=== PATIENT | female | born 1955 | race Two or more races ===

== ENCOUNTER 2016-11-07 00:54 | Inpatient (IN) | payer MEDICAID ==
[2016-11-07] VITALS (7 sets, daily range): BP systolic 125–142; BP diastolic 68–75
[~2016-11-07] VITALS: Ht 132.1 cm; Wt 76.7 kg
[~2016-11-07 00:54] MED LIST: ASPIRIN-LOW81 MG ORAL; BENAZEPRIL HCL10 MG ORAL; CEPHALEXIN500 MG ORAL; GLIPIZIDE ER5 MG PO; IBUPROFEN600 MG ORAL; IBUPROFEN600 MG PO; LEVAQUIN500 MG ORAL; MAALOX MAXIMUM355 M1 PO; METFORMIN HCL500 M1 ORAL; METRONIDAZOLE500 MG ORAL; NORCO 5-325 TA1 EACH ORAL; OMEPRAZOLE20 M3 ORAL; RANITIDINE HCL150 MG ORAL
[2016-11-07] MEDS ORDERED: Morphine Sulfate 4mg/ml Inj IVP ONE ×2 (01:30→03:30)
[2016-11-07 01:46] LABS: BASOPHILS % (AUTO) 0.8 % (0.0-2.0); EOSINOPHILS % (AUTO) 0.6 % (0.0-3.0); LYMPHOCYTES % (AUTO) 17.3 % (20.0-45.0); MEAN CORPUSCULAR HEMOGLOBIN 29.9 PG (27.0-31.0); MEAN CORPUSCULAR HGB CONC 33.4 G/DL (32.0-36.0); MEAN CORPUSCULAR VOLUME 89 FL (80-99); MEAN PLATELET VOLUME 6.9 FL (6.5-10.1); MONOCYTES % (AUTO) 4.6 % (1.0-10.0); NEUTROPHILS % (AUTO) 76.7 % (45.0-75.0); PLATELET COUNT 430 K/UL (150-450); RED BLOOD COUNT 4.54 M/UL (4.20-5.40); RED CELL DISTRIBUTION WIDTH 12.2 % (11.6-14.8); WHITE BLOOD COUNT 12.4 K/UL (4.8-10.8)
[2016-11-07 02:00] LABS: ALANINE AMINOTRANSFERASE 11 U/L (3-33); ALBUMIN/GLOBULIN RATIO 0.8 (1.0-2.7); ANION GAP 16 (5-15); ASPARTATE AMINO TRANSFERASE 15 U/L (5-40); CALCIUM 9.3 mg/dL (8.6-10.2); CARBON DIOXIDE 25 mEQ/L (20-30); CHLORIDE 90 mEQ/L (98-107); CREATININE 0.8 mg/dL (0.5-0.9); GLOMERULAR FILTRATION RATE > 60 mL/min (>60); HEMOLYSIS 53; LIPASE 25 U/L (< 60); POTASSIUM 4.2 mEQ/L (3.4-4.9); SODIUM 131 mEQ/L (135-145); TOTAL PROTEIN 7.9 g/dL (6.6-8.7)
[2016-11-07 02:02] LABS: TROPONIN I < 0.30 ng/mL (<=0.30)
--- NOTE | 2016-11-07 05:59 | Emergency Room Report ---
History of Present Illness General Chief Complaint: Abdominal Pain Source: Patient Present Illness HPI 61-year-old female presents to ED complaining of abdominal pain. States symptoms started tonight while sleeping. Pain is right upper quadrant, sharp, nonradiating, 10 out of 10. No aggravating or relieving factors. Denies chest pain or shortness of breath. Denies fevers chills. Denies nausea or vomiting. Denies any other associated symptoms Allergies: Coded Allergies: No Known Allergies (Unverified , 02/25/15) Patient History Past Medical History: DM, HTN Past Surgical History: none Pertinent Family History: none Social History: Denies: alcohol use, drug use, smoking Last Menstrual Period: NA Now: No : 7 Immunizations: UTD Reviewed Nursing Documentation: PMH: Agreed, PSxH: Agreed Nursing Documentation-PMH Hx Cardiac Problems: No Hx Hypertension: Yes Hx Pacemaker: No Hx Asthma: No Hx COPD: No Hx Diabetes: Yes Hx Cancer: No Hx Gastrointestinal Problems: No Hx Dialysis: No Hx Neurological Problems: No Hx Cerebrovascular Accident: No Hx Seizures: No Review of Systems All Other Systems: negative except mentioned in HPI Physical Exam Vital Signs Date Time Temp Pulse Resp B/P Pulse Ox O2 Delivery O2 Flow Rate FiO2 11/07/16 01:01 97.7 91 18 174/96 95 Room Air Sp02 EP Interpretation: reviewed, normal General Appearance: no apparent distress, alert, GCS 15, non-toxic, obese Head: normocephalic Eyes: bilateral eye PERRL, bilateral eye normal inspection ENT: normal ENT inspection Neck: normal inspection Respiratory: chest non-tender, lungs clear, normal breath sounds, speaking full sentences Cardiovascular #1: regular rate, rhythm, no edema Gastrointestinal: normal bowel sounds, soft, non-distended, no guarding, no rebound, tenderness - RUQ Rectal: deferred Genitourinary: no CVA tenderness Musculoskeletal: normal inspection Neurologic: alert, oriented x3, responsive, motor strength/tone normal, sensory intact, speech normal Psychiatric: normal inspection Skin: normal inspection Lymphatic: normal inspection Medical Decision Making Diagnostic Impression: Primary Impression: Choledocholithiasis Additional Impression: Recurrent biliary colic ER Course Hospital Course 61-year-old F presents to ED with RUQ pain Differential diagnoses include: Appendicitis, cholecystitis, small bowel obstruction Clinical course Patient placed on stretcher. hall monitor. After initial history and physical I ordered labs, IV fluids, UA, pain medication and CT Labs - leukocytosis noted, Hb/Hct stable. electrolytes ok. LFTs ok. CT - choledocolithasis. no cholecystitis After multiple rounds of pain medication patient continues to have pain. Case discussed with Dr. Barillas and he agreed to accept the patient to his service for further care and support I feel this is a highly complex case requiring extensive working including EKG/ Rhythm strip, Xray/CT/US, Blood/urine lab work, repeat exams while in ED, and administration of strong opiates/narcotics for pain control, admission to hospital or close patient follow up. Diagnosis - choledocolithiasis, recurrent biliary colic Patient admitted to hospital in serious condition Labs Test 11/07/16 01:33 White Blood Count 12.4 K/UL (4.8-10.8) Red Blood Count 4.54 M/UL (4.20-5.40) Hemoglobin 13.6 G/DL (12.0-16.0) Hematocrit 40.5 % (37.0-47.0) Mean Corpuscular Volume 89 FL (80-99) Mean Corpuscular Hemoglobin 29.9 PG (27.0-31.0) Mean Corpuscular Hemoglobin Concent 33.4 G/DL (32.0-36.0) Red Cell Distribution Width 12.2 % (11.6-14.8) Platelet Count 430 K/UL (150-450) Mean Platelet Volume 6.9 FL (6.5-10.1) Neutrophils (%) (Auto) 76.7 % (45.0-75.0) Lymphocytes (%) (Auto) 17.3 % (20.0-45.0) Monocytes (%) (Auto) 4.6 % (1.0-10.0) Eosinophils (%) (Auto) 0.6 % (0.0-3.0) Basophils (%) (Auto) 0.8 % (0.0-2.0) Sodium Level 131 mEQ/L (135-145) Potassium Level 4.2 mEQ/L (3.4-4.9) Chloride Level 90 mEQ/L (98-107) Carbon Dioxide Level 25 mEQ/L (20-30) Anion Gap 16 (5-15) Blood Urea Nitrogen 10 mg/dL (7-23) Creatinine 0.8 mg/dL (0.5-0.9) Estimat Glomerular Filtration Rate > 60 mL/min (>60) Glucose Level 247 mg/dL (74-106) Calcium Level 9.3 mg/dL (8.6-10.2) Total Bilirubin 0.5 mg/dL (0.0-1.2) Aspartate Amino Transf (AST/SGOT) 15 U/L (5-40) Alanine Aminotransferase (ALT/SGPT) 11 U/L (3-33) Alkaline Phosphatase 90 U/L (35-104) Troponin I < 0.30 ng/mL (<=0.30) Total Protein 7.9 g/dL (6.6-8.7) Albumin 3.7 g/dL (3.5-5.2) Globulin 4.2 g/dL Albumin/Globulin Ratio 0.8 (1.0-2.7) Lipase 25 U/L (< 60) CT/MRI/US Diagnostic Results CT/MRI/US Diagnostic Results : Imaging Test Ordered: CT A/P Impression Small gallstones. There is a punctate stone in the distal common duct at the level of the ampulla of Vater, best seen on image 41 of series 2, consistent with choledocholithiasis. No intrahepatic or extrahepatic ductal dilatation. Last Vital Signs Date Time Temp Pulse Resp B/P Pulse Ox O2 Delivery O2 Flow Rate FiO2 11/07/16 05:10 98.1 80 18 128/68 98 Room Air Status: improved Disposition: ADMITTED INPATIENT Condition: Serious Referrals: [facility],REFERRING (PCP) DLIAN GUILLERMO M.D. Nov 07, 2016 05:59
[2016-11-07] MEDS ORDERED: Nitroglycerin Subl 0.4mg tab (Bottle Of 25) SL PRN (07:30)
[2016-11-07] MEDS ORDERED: Miralax 17gm pkt ORAL PRN (07:30)
[2016-11-07] MEDS ORDERED: Mylanta II UD 30ml ORAL PRN (07:30)
[2016-11-07] MEDS: D5 1/2NS 1,000 ML IV SCH ×2 (07:36→21:52)
[2016-11-07] MEDS: Morphine Sulfate 2mg/ml Inj IVP PRN ×2 (07:36→19:42)
[2016-11-07] MEDS: Piperacillin/Tazobactam 3.375 GM in NS 110 ML IVPB SCH ×2 (10:30→21:52)
[2016-11-07] MEDS: Heparin 5000 units/ml inj SUBQ SCH ×2 (10:31→21:00)
--- NOTE | 2016-11-07 10:31 | Diagnostic Imaging Report ---
Clinical Indication: Abdominal pain Technique: No oral contrast utilized, per emergency room physician request IV administration nonionic contrast. Venous phase spiral acquisition obtained through the abdomen and pelvis. Multiplanar reconstructions were generated. Total dose length product 933 mGycm. CTDIvol(s) 18 mGy Comparison: 02/22/2015 Findings: The appendix is normal no evidence of diverticulosis or diverticulitis. No small bowel distention. No free or loculated intraperitoneal air or fluid is demonstrated. Distal esophagus, stomach, edema are unremarkable. The gallbladder contains gallstones. It is nondistended. There is ectasia of the extrahepatic bile ducts, with the common bile duct measuring up to 10 mm diameter. There is suggestion of a punctate calcification measuring 3 mm diameter in the common bile duct at the level of the ampulla. The liver, pancreas are unremarkable. A calcification is seen in the lower pole of the spleen. The adrenals and kidneys are unremarkable. Again demonstrated is a fat-containing mass in the left adnexal region. The uterus and right ovary are unremarkable. There is a 5 mm nodule at the left lateral lung base, in retrospect evident previously and unchanged. There are are mild degenerative changes of the lumbar spine Impression: Cholelithiasis. Punctate calcification in the distal common bile duct with mild biliary ductal dilatation, consistent with choledocholithiasis possible biliary obstruction Left ovarian dermoid again demonstrated Left basilar lung nodule, unchanged from 01/26/2015. Stability indicates likely benignity. Other findings as noted, including degenerative lumbar spondylosis, splenic calcification This agrees with the preliminary interpretation provided overnight by [facility] teleradiology service. The CT scanner at [facility] is accredited by the [employer] and the scans are performed using protocols designed to limit radiation exposure to as low as reasonably achievable to attain images of sufficient resolution adequate for diagnostic evaluation.
--- NOTE | 2016-11-07 14:25 | GI Initial Consult Note ---
History of Present Illness General Date patient seen: Nov 07, 2016 Time patient seen: 11:00 Reason for Hospitalization: Abdominal Pain Referring physician: LUAN RESENDEZ Reason for Consultation: BILARY COLIC Present Illness HPI 61-year-old female presents to ED complaining of abdominal pain. States symptoms started tonight while sleeping. Pain is right upper quadrant, sharp, nonradiating, 10 out of 10. No aggravating or relieving factors. Denies chest pain or shortness of breath. Denies fevers chills. Denies nausea or vomiting. Denies any other associated symptoms GI CONSULT: HPI as noted above. GI consulted for bilary colic. Pt seen on floor, awake A&Ox4 NAD c/o of upper dull abdominal pain, tender to touch. Pt was seen in January 2015 with similar symptoms where they found no urgent need for surgery. Cholecystectomy as elective/outpatient and not done. Pt presents today with leukocytosis and APCT showing 3cc CBD mild ductal dilation consistent with choledocholithiasis with possible biliary obstruction. LFTs unremarkable. Service Date: 11/07/16 Procedure: CT Abdomen Pelvis w/Contrast Clinical Indication: Abdominal pain Impression: Cholelithiasis. Punctate calcification in the distal common bile duct with mild biliary ductal dilatation, consistent with choledocholithiasis possible biliary obstruction Left ovarian dermoid again demonstrated Left basilar lung nodule, unchanged from 01/26/2015. Stability indicates likely benignity. Other findings as noted, including degenerative lumbar spondylosis, splenic calcification Home Meds Active Scripts Hydrocodone Bit/Acetaminophen 5-325* (NORCO 5-325*) 1 Each Tablet, 1 TAB ORAL Q6H Y for For Pain, #20 TAB 0 Refills Prov:RAHUL DUNCAN M.D. 06/08/16 Ibuprofen* (MOTRIN*) 600 Mg Tablet, 600 MG ORAL THREE TIMES A DAY, #30 TAB 0 Refills Prov:RAHUL DUNCAN M.D. 06/08/16 Reported Medications Glipizide (GLIPIZIDE ER) 5 Mg Tab.er.24, 5 MG PO DAILY, TAB 02/22/15 Benazepril Hcl* (BENAZEPRIL HCL*) 10 Mg Tablet, 10 MG ORAL DAILY, TAB 05/15/14 Metformin Hcl* (METFORMIN HCL*) 500 Mg Tablet, 500 MG ORAL TWICE A DAY, TAB 05/15/14 Aspirin (Aspirin EC) 81 Mg Tabec, 81 MG ORAL DAILY, TAB 05/15/14 Med list reviewed/reconciled: Yes Allergies: Coded Allergies: No Known Allergies (Unverified , 02/25/15) Patient History History Provided By: Patient, Medical Record PMH Narrative Past Medical History: DM, HTN Past Surgical History: none Pertinent Family History: none Social History: Denies: alcohol use, drug use, smoking Last Menstrual Period: NA Now: No : 7 Immunizations: UTD Reviewed Nursing Documentation: PMH: Agreed, PSxH: Agreed Nursing Documentation-PMH Hx Cardiac Problems: No Hx Hypertension: Yes Hx Pacemaker: No Hx Asthma: No Hx COPD: No Hx Diabetes: Yes Hx Cancer: No Hx Gastrointestinal Problems: No Hx Dialysis: No Hx Neurological Problems: No Hx Cerebrovascular Accident: No Hx Seizures: No Review of Systems All Other Systems: negative except mentioned in HPI Physical Exam Vital Signs Date Time Temp Pulse Resp B/P Pulse Ox O2 Delivery O2 Flow Rate FiO2 11/07/16 01:01 97.7 91 18 174/96 95 Room Air Sp02 EP Interpretation: reviewed Labs Laboratory Tests Test 11/07/16 01:33 White Blood Count 12.4 K/UL (4.8-10.8) H Red Blood Count 4.54 M/UL (4.20-5.40) Hemoglobin 13.6 G/DL (12.0-16.0) Hematocrit 40.5 % (37.0-47.0) Mean Corpuscular Volume 89 FL (80-99) Mean Corpuscular Hemoglobin 29.9 PG (27.0-31.0) Mean Corpuscular Hemoglobin Concent 33.4 G/DL (32.0-36.0) Red Cell Distribution Width 12.2 % (11.6-14.8) Platelet Count 430 K/UL (150-450) Mean Platelet Volume 6.9 FL (6.5-10.1) Neutrophils (%) (Auto) 76.7 % (45.0-75.0) H Lymphocytes (%) (Auto) 17.3 % (20.0-45.0) L Monocytes (%) (Auto) 4.6 % (1.0-10.0) Eosinophils (%) (Auto) 0.6 % (0.0-3.0) Basophils (%) (Auto) 0.8 % (0.0-2.0) Sodium Level 131 mEQ/L (135-145) L Potassium Level 4.2 mEQ/L (3.4-4.9) Chloride Level 90 mEQ/L (98-107) L Carbon Dioxide Level 25 mEQ/L (20-30) Anion Gap 16 (5-15) H Blood Urea Nitrogen 10 mg/dL (7-23) Creatinine 0.8 mg/dL (0.5-0.9) Estimat Glomerular Filtration Rate > 60 mL/min (>60) Glucose Level 247 mg/dL (74-106) H Calcium Level 9.3 mg/dL (8.6-10.2) Total Bilirubin 0.5 mg/dL (0.0-1.2) Aspartate Amino Transf (AST/SGOT) 15 U/L (5-40) Alanine Aminotransferase (ALT/SGPT) 11 U/L (3-33) Alkaline Phosphatase 90 U/L (35-104) Troponin I < 0.30 ng/mL (<=0.30) Total Protein 7.9 g/dL (6.6-8.7) Albumin 3.7 g/dL (3.5-5.2) Globulin 4.2 g/dL Albumin/Globulin Ratio 0.8 (1.0-2.7) L Lipase 25 U/L (< 60) General Appearance: well appearing, no apparent distress, alert Head: normocephalic EENT: normal ENT inspection Neck: full range of motion, supple Respiratory: normal breath sounds, no respiratory distress Cardiovascular: normal rate Gastrointestinal: normal inspection, non tender, soft Rectal: deferred Musculoskeletal: normal inspection, back normal Neurologic: normal inspection, alert, oriented x3, responsive Psychiatric: normal inspection, judgement/insight normal, memory normal Skin: normal inspection, normal color, no rash, warm/dry Lymphatic: normal inspection, no adenopathy Current Medications Current Medications Medications (Trade) Dose Ordered Sig/Zhao Route PRN Reason Start Time Stop Time Status Last Admin Dose Admin Acetaminophen (Tylenol) 650 mg Q4H PRN ORAL fever 11/07/16 07:30 12/07/16 07:29 Al Hydroxide/Mg Hydroxide (Mylanta II) 30 ml Q6H PRN ORAL dyspepsia 11/07/16 07:30 12/07/16 07:29 Dextrose STAT PRN IV Hypoglycemia 11/07/16 07:30 12/07/16 07:29 Dextrose/Sodium Chloride (D5 0.45% NS) 1,000 ml @ 75 mls/hr [id number] IV 11/07/16 07:45 12/07/16 07:44 11/07/16 07:36 Diphenhydramine HCl (Benadryl) 25 mg Q6H PRN ORAL Itching/Pruritis 11/07/16 07:30 12/07/16 07:29 Heparin Sodium (Porcine) (Heparin 5000 units/ml) 5,000 units EVERY 12 HOURS SUBQ 11/07/16 09:00 12/07/16 08:59 11/07/16 10:31 Morphine Sulfate (Morphine Sulfate) 2 mg Q4H PRN IVP severe Pain (Pain Scale 7-10) 11/07/16 07:30 11/14/16 07:29 11/07/16 07:36 Nitroglycerin (Ntg) 0.4 mg Q5M X 3 DOSES PRN SL Prn Chest Pain 11/07/16 07:30 12/07/16 07:29 Ondansetron HCl (Zofran) 4 mg Q6H PRN IVP Nausea & Vomiting 11/07/16 07:30 12/07/16 07:29 Piperacillin Sod/ Tazobactam Sod/ Sodium Chloride (Zosyn/Sodium Chloride) 110 ml @ 27.5 mls/hr Q8HR IVPB 11/07/16 09:00 11/14/16 08:59 11/07/16 10:30 Polyethylene Glycol (Miralax) 17 gm HSPRN PRN ORAL Constipation 11/07/16 07:30 12/07/16 07:29 Temazepam (Restoril) 15 mg HSPRN PRN ORAL Insomnia 11/07/16 07:30 11/14/16 07:29 GI: Plan Problems: (1) Choledocholithiasis (2) Recurrent biliary colic (3) Gastroenteritis (4) Gastritis Plan APCT reviewed >> mild CBD dilation with choledocholithiasis with possible biliary obstruction. LFTs unremarkable lipase negative pt scheduled for EGD tomorrow to evaluate abdominal pain from possible nobiliary source. - ok for diet now, NPO @ MN. hold all blood thinners. H2 pain mgmt abx fu labs Discussed with Dr. Knight. Thank you for referring this patient, we will follow. Debo Duncan N.P. Nov 07, 2016 14:25
[2016-11-07] MEDS: NovoLOG Insulin Flexpen SUBQ SCH (22:00)
--- NOTE | 2016-11-07 22:10 | History and Physical ---
History of Present Illness General Date patient seen: Nov 07, 2016 Reason for Hospitalization: Abdominal Pain Present Illness HPI 61-year-old female with hx of DM, HTN presents to ED complaining right upper quadrant, sharp, nonradiating,abdominal pain. No aggravating or relieving factors. Denies chest pain or shortness of breath. Denies fevers chills. Denies nausea or vomiting. Denies any other associated symptoms. Pt was to have biliary colic and admitted for further evaluation. Allergies: Coded Allergies: No Known Allergies (Unverified , 02/25/15) Medication History Scheduled Aspirin (Aspirin EC), 81 MG ORAL DAILY, (Reported) Benazepril Hcl* (Benazepril Hcl*), 10 MG ORAL DAILY, (Reported) Glipizide (Glipizide Er), 5 MG PO DAILY, (Reported) Ibuprofen* (Motrin*), 600 MG ORAL THREE TIMES A DAY Metformin Hcl* (Metformin Hcl*), 500 MG ORAL TWICE A DAY, (Reported) Scheduled PRN Hydrocodone Bit/Acetaminophen 5-325* ([place] 5-325*), 1 TAB ORAL Q6H PRN for For Pain Patient History Healthcare decision maker Resuscitation status Full Code Advanced Directive on File No Past Medical/Surgical History Past Medical/Surgical History: (1) Diabetes mellitus (2) HTN (hypertension) (3) Gastritis Review of Systems All Other Systems: negative except mentioned in HPI Physical Exam General Appearance: WD/WN Lines, tubes and drains: peripheral HEENT: normocephalic, atraumatic Neck: non-tender, normal alignment Respiratory/Chest: chest wall non-tender, lungs clear Cardiovascular/Chest: normal peripheral pulses Abdomen: normal bowel sounds, non tender Genitourinary/Rectal: normal genital exam Extremities: normal range of motion Skin Exam: normal pigmentation 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 Last 24 Hour Vital Signs Date Time Temp Pulse Resp B/P Pulse Ox O2 Delivery O2 Flow Rate FiO2 11/07/16 20:12 98.9 11/07/16 20:00 98.8 90 16 139/ 94 Room Air 11/07/16 17:11 98.9 11/07/16 16:00 100.6 114 15 142/75 93 Room Air 11/07/16 11:41 99.7 81 20 141/70 99 Room Air 11/07/16 07:12 98.2 77 22 125/72 93 Room Air 11/07/16 05:10 98.1 80 18 128/68 98 Room Air 11/07/16 05:10 98.1 80 18 128/68 98 Room Air 11/07/16 03:10 98.0 81 19 133/71 96 Room Air 11/07/16 02:14 97.7 11/07/16 02:14 97.7 11/07/16 01:10 97.7 75 12 136/74 99 Room Air 11/07/16 01:01 97.7 91 18 174/96 95 Room Air Intake and Output 11/06/16 11/07/16 19:00 07:00 Intake Total 500 ml Balance 500 ml Intake IV Total 500 ml Other 0 ml Laboratory Tests Test 11/07/16 01:33 White Blood Count 12.4 K/UL (4.8-10.8) H Red Blood Count 4.54 M/UL (4.20-5.40) Hemoglobin 13.6 G/DL (12.0-16.0) Hematocrit 40.5 % (37.0-47.0) Mean Corpuscular Volume 89 FL (80-99) Mean Corpuscular Hemoglobin 29.9 PG (27.0-31.0) Mean Corpuscular Hemoglobin Concent 33.4 G/DL (32.0-36.0) Red Cell Distribution Width 12.2 % (11.6-14.8) Platelet Count 430 K/UL (150-450) Mean Platelet Volume 6.9 FL (6.5-10.1) Neutrophils (%) (Auto) 76.7 % (45.0-75.0) H Lymphocytes (%) (Auto) 17.3 % (20.0-45.0) L Monocytes (%) (Auto) 4.6 % (1.0-10.0) Eosinophils (%) (Auto) 0.6 % (0.0-3.0) Basophils (%) (Auto) 0.8 % (0.0-2.0) Sodium Level 131 mEQ/L (135-145) L Potassium Level 4.2 mEQ/L (3.4-4.9) Chloride Level 90 mEQ/L (98-107) L Carbon Dioxide Level 25 mEQ/L (20-30) Anion Gap 16 (5-15) H Blood Urea Nitrogen 10 mg/dL (7-23) Creatinine 0.8 mg/dL (0.5-0.9) Estimat Glomerular Filtration Rate > 60 mL/min (>60) Glucose Level 247 mg/dL (74-106) H Calcium Level 9.3 mg/dL (8.6-10.2) Total Bilirubin 0.5 mg/dL (0.0-1.2) Aspartate Amino Transf (AST/SGOT) 15 U/L (5-40) Alanine Aminotransferase (ALT/SGPT) 11 U/L (3-33) Alkaline Phosphatase 90 U/L (35-104) Troponin I < 0.30 ng/mL (<=0.30) Total Protein 7.9 g/dL (6.6-8.7) Albumin 3.7 g/dL (3.5-5.2) Globulin 4.2 g/dL Albumin/Globulin Ratio 0.8 (1.0-2.7) L Lipase 25 U/L (< 60) Height (Feet): 4 Height (Inches): 6.00 Weight (Pounds): 169 Medications Current Medications Medications (Trade) Dose Ordered Sig/Zhao Route PRN Reason Start Time Stop Time Status Last Admin Dose Admin Acetaminophen (Tylenol) 650 mg Q4H PRN ORAL fever 11/07/16 07:30 12/07/16 07:29 11/07/16 16:12 Al Hydroxide/Mg Hydroxide (Mylanta II) 30 ml Q6H PRN ORAL dyspepsia 11/07/16 07:30 12/07/16 07:29 Dextrose STAT PRN IV Hypoglycemia 11/07/16 07:30 12/07/16 07:29 Dextrose/Sodium Chloride (D5 0.45% NS) 1,000 ml @ 75 mls/hr [id number] IV 11/07/16 07:45 12/07/16 07:44 11/07/16 21:52 Diphenhydramine HCl (Benadryl) 25 mg Q6H PRN ORAL Itching/Pruritis 11/07/16 07:30 12/07/16 07:29 Heparin Sodium (Porcine) (Heparin 5000 units/ml) 5,000 units EVERY 12 HOURS SUBQ 11/07/16 09:00 12/07/16 08:59 11/07/16 10:31 Insulin Aspart (NovoLOG) BEFORE MEALS AND HS SUBQ 11/07/16 22:00 12/07/16 21:59 Morphine Sulfate (Morphine Sulfate) 2 mg Q4H PRN IVP severe Pain (Pain Scale 7-10) 11/07/16 07:30 11/14/16 07:29 11/07/16 19:42 Nitroglycerin (Ntg) 0.4 mg Q5M X 3 DOSES PRN SL Prn Chest Pain 11/07/16 07:30 12/07/16 07:29 Ondansetron HCl (Zofran) 4 mg Q6H PRN IVP Nausea & Vomiting 11/07/16 07:30 12/07/16 07:29 Piperacillin Sod/ Tazobactam Sod/ Sodium Chloride (Zosyn/Sodium Chloride) 110 ml @ 27.5 mls/hr Q8HR IVPB 11/07/16 09:00 11/14/16 08:59 11/07/16 21:52 Polyethylene Glycol (Miralax) 17 gm HSPRN PRN ORAL Constipation 11/07/16 07:30 12/07/16 07:29 Temazepam (Restoril) 15 mg HSPRN PRN ORAL Insomnia 11/07/16 07:30 11/14/16 07:29 Assessment/Plan Problem List: (1) Cholelithiases ICD Codes: K80.20 - Calculus of gallbladder without cholecystitis without obstruction SNOMED: 196913255 (2) HTN (hypertension) ICD Codes: I10 - Essential (primary) hypertension SNOMED: 71619678 (3) Gastritis ICD Codes: K29.70 - Gastritis, unspecified, without bleeding SNOMED: 4940853 (4) Diabetes mellitus ICD Codes: E11.9 - Type 2 diabetes mellitus without complications SNOMED: 56770584 Assessment/Plan npo IV hydration GI evaluation biliary evaluation sliding scale LUAN RESENDEZ Nov 07, 2016 22:10
[2016-11-08] VITALS (7 sets, daily range): BP systolic 104–172; BP diastolic 34–83
[2016-11-08] MEDS: Morphine Sulfate 2mg/ml Inj IVP PRN ×3 (00:43→23:40)
[2016-11-08] MEDS: Piperacillin/Tazobactam 3.375 GM in NS 110 ML IVPB SCH ×3 (05:52→23:32)
[2016-11-08] MEDS: NovoLOG Insulin Flexpen SUBQ SCH ×4 (05:54→23:38)
[2016-11-08 07:34] LABS: MEAN CORPUSCULAR HEMOGLOBIN 30.5 PG (27.0-31.0); MEAN CORPUSCULAR HGB CONC 33.9 G/DL (32.0-36.0); MEAN CORPUSCULAR VOLUME 90 FL (80-99); MEAN PLATELET VOLUME 6.4 FL (6.5-10.1); PLATELET COUNT 328 K/UL (150-450); RED BLOOD COUNT 4.19 M/UL (4.20-5.40); RED CELL DISTRIBUTION WIDTH 12.4 % (11.6-14.8); WHITE BLOOD COUNT 15.8 K/UL (4.8-10.8)
[2016-11-08 08:01] LABS: INR 1.1 (0.9-1.1); PROTHROMBIN TIME 11.7 SEC (9.30-11.50)
[2016-11-08 08:02] LABS: ALANINE AMINOTRANSFERASE 23 U/L (3-33); ALBUMIN/GLOBULIN RATIO 0.8 (1.0-2.7); AMYLASE 29 U/L (10-110); ANION GAP 16 (5-15); ASPARTATE AMINO TRANSFERASE 31 U/L (5-40); CALCIUM 9.1 mg/dL (8.6-10.2); CARBON DIOXIDE 26 mEQ/L (20-30); CHLORIDE 92 mEQ/L (98-107); CREATININE 0.8 mg/dL (0.5-0.9); GLOMERULAR FILTRATION RATE > 60 mL/min (>60); HEMOLYSIS 2; LIPASE 12 U/L (< 60); POTASSIUM 3.5 mEQ/L (3.4-4.9); SODIUM 134 mEQ/L (135-145); TOTAL PROTEIN 7.3 g/dL (6.6-8.7)
--- NOTE | 2016-11-08 08:10 | Anethesia Preoperative Eval ---
Anesthesia Pre-op PMH/ROS General Date of Evaluation: Nov 08, 2016 Anesthesiologist: Fredis ASA Score: ASA 2 Mallampati Score Class I : Soft palate, uvula, fauces, pillars visible Class II: Soft palate, uvula, fauces visible Class III: Soft palate, base of uvula visible Class IV: Only hard plate visible Mallampati Classification: Class II Surgeon: Eugene Diagnosis: Abdominal pain Surgical Procedure: EGD Anesthesia History: none Family History: no anesthesia problems Allergies: Coded Allergies: No Known Allergies (Unverified , 02/25/15) Medications: see eMAR Past Medical History Cardiovascular: Reports: HTN, Denies: CAD, VA, arrhythmia, other, valve dz Pulmonary: Denies: COPD, MICHEL, asthma, other Gastrointestinal/Genitourinary: Denies: CRI, ESRD, GERD, other Neurologic/Psychiatric: Denies: CVA, TIA, dementia, depression/anxiety, other Endocrine: Reports: DM, Denies: hypothyroidism, other, steroids HEENT: Denies: [place] (L), [place] (R), cataract (L), cataract (R), glaucoma, other Hematology/Immune: Denies: DVT, anemia, bleeding disorder, other Musculoskeletal/Integumentary: Denies: DDD, DJD, OA, RA, edema, other PSxH Narrative: lap adilene Anesthesia Pre-op Phys. Exam Physician Exam Last Vital Signs Date Time Temp Pulse Resp B/P Pulse Ox O2 Delivery O2 Flow Rate FiO2 11/08/16 08:05 98.4 80 15 144/83 96 Room Air Constitutional: NAD Cardiovascular: RRR Respiratory: CTA Airway Exam Mallampati Score: Class II Anesthesia Pre-op A/P Labs Hematology Test 11/08/16 06:15 White Blood Count 15.8 K/UL (4.8-10.8) H Red Blood Count 4.19 M/UL (4.20-5.40) L Hemoglobin 12.8 G/DL (12.0-16.0) Hematocrit 37.8 % (37.0-47.0) Mean Corpuscular Volume 90 FL (80-99) Mean Corpuscular Hemoglobin 30.5 PG (27.0-31.0) Mean Corpuscular Hemoglobin Concent 33.9 G/DL (32.0-36.0) Red Cell Distribution Width 12.4 % (11.6-14.8) Platelet Count 328 K/UL (150-450) Mean Platelet Volume 6.4 FL (6.5-10.1) L Neutrophils (%) (Auto) % (45.0-75.0) Lymphocytes (%) (Auto) % (20.0-45.0) Monocytes (%) (Auto) % (1.0-10.0) Eosinophils (%) (Auto) % (0.0-3.0) Basophils (%) (Auto) % (0.0-2.0) Neutrophils % (Manual) Pending Lymphocytes % (Manual) Pending Platelet Estimate Pending Platelet Morphology Pending Coagulation Test 11/08/16 06:15 Prothrombin Time 11.7 SEC (9.30-11.50) H Prothromb Time International Ratio 1.1 (0.9-1.1) Activated Partial Thromboplast Time 29 SEC (23-33) Chemistry Test 11/08/16 06:15 Sodium Level 134 mEQ/L (135-145) L Potassium Level 3.5 mEQ/L (3.4-4.9) Chloride Level 92 mEQ/L (98-107) L Carbon Dioxide Level 26 mEQ/L (20-30) Anion Gap 16 (5-15) H Blood Urea Nitrogen 9 mg/dL (7-23) Creatinine 0.8 mg/dL (0.5-0.9) Estimat Glomerular Filtration Rate > 60 mL/min (>60) Glucose Level 272 mg/dL (74-106) H Calcium Level 9.1 mg/dL (8.6-10.2) Total Bilirubin 1.2 mg/dL (0.0-1.2) Direct Bilirubin Pending Aspartate Amino Transf (AST/SGOT) 31 U/L (5-40) Alanine Aminotransferase (ALT/SGPT) 23 U/L (3-33) Alkaline Phosphatase 150 U/L (35-104) H Total Protein 7.3 g/dL (6.6-8.7) Albumin 3.4 g/dL (3.5-5.2) L Globulin 3.9 g/dL Albumin/Globulin Ratio 0.8 (1.0-2.7) L Amylase Level 29 U/L (10-110) Lipase 12 U/L (< 60) Studies Pre-op Studies: EKG - sr Risk Assessment & Plan Assessment: ASA II Plan: MAC Status Change Before Surgery: Yes - Patient febrile with 104.5; procedure to be rescheduled Pre-Antibiotics Drug: N/A JADEN PAREDES M.D. Nov 08, 2016 08:10
[2016-11-08 08:15] LABS: BILIRUBIN,DIRECT 0.4 mg/dL (0.1-0.3)
[2016-11-08] MEDS: Heparin 5000 units/ml inj SUBQ SCH ×2 (08:16→21:00)
[2016-11-08 08:42] LABS: BAND NEUTROPHILS % (MANUAL) 0 % (0-8); BASOPHILS % (MANUAL) 0 % (0-2); EOSINOPHILS % (MANUAL) 0 % (0-3); LYMPHOCYTES % (MANUAL) 2 % (20-45); NEUTROPHILS % (MANUAL) 93 % (45-75); PLATELET ESTIMATE ADEQUATE; PLATELET MORPHOLOGY NORMAL; TOTAL CELLS COUNTED 100
[2016-11-08] MEDS: D5 1/2NS 1,000 ML IV SCH ×2 (10:25→23:45)
--- NOTE | 2016-11-08 11:19 | Consultation ---
Consult Note Consult Note ID Dic # [id number] JENNY ROMERO M.D. Nov 08, 2016 11:19
--- NOTE | 2016-11-08 12:45 | General Progress Note ---
Assessment/Plan Problem List: (1) Cholelithiases ICD Codes: K80.20 - Calculus of gallbladder without cholecystitis without obstruction SNOMED: 945110220 (2) Diabetes mellitus ICD Codes: E11.9 - Type 2 diabetes mellitus without complications SNOMED: 39470247 (3) Choledocholithiasis ICD Codes: K80.50 - Calculus of bile duct without cholangitis or cholecystitis without obstruction SNOMED: 566994950 Assessment/Plan iv abx per ID plan ERCP tomorrow Subjective ROS Limited/Unobtainable: Yes Allergies: Coded Allergies: No Known Allergies (Unverified , 02/25/15) Subjective abd pain Objective Last 24 Hour Vital Signs Date Time Temp Pulse Resp B/P Pulse Ox O2 Delivery O2 Flow Rate FiO2 11/08/16 11:13 98.4 119 18 128/71 97 Room Air 11/08/16 09:28 98.4 11/08/16 08:17 104.9 144 20 172/78 95 Room Air 11/08/16 04:00 98.1 98 20 113/34 96 Room Air 11/08/16 00:00 102.0 121 20 104/60 93 Room Air 11/07/16 20:12 98.9 11/07/16 20:00 98.8 90 16 139/ 94 Room Air 11/07/16 16:00 100.6 114 15 142/75 93 Room Air Intake and Output 11/07/16 11/08/16 19:00 07:00 Intake Total 375 ml 587.5 ml Balance 375 ml 587.5 ml Intake IV Total 375 ml 587.5 ml # Voids 2 4 Laboratory Tests 11/08/16 06:15: White Blood Count 15.8H, Red Blood Count 4.19L, Hemoglobin 12.8, Hematocrit 37.8 , Mean Corpuscular Volume 90, Mean Corpuscular Hemoglobin 30.5, Mean Corpuscular Hemoglobin Concent 33.9, Red Cell Distribution Width 12.4, Platelet Count 328, Mean Platelet Volume 6.4L, Neutrophils (%) (Auto) , Lymphocytes (%) ( Auto) , Monocytes (%) (Auto) , Eosinophils (%) (Auto) , Basophils (%) (Auto) , Differential Total Cells Counted 100, Neutrophils % (Manual) 93H, Lymphocytes % (Manual) 2L, Monocytes % (Manual) 5, Eosinophils % (Manual) 0, Basophils % ( Manual) 0, Band Neutrophils 0, Platelet Estimate Adequate, Platelet Morphology Normal, Red Blood Cell Morphology Normal, Prothrombin Time 11.7H, Prothromb Time International Ratio 1.1, Activated Partial Thromboplast Time 29, Sodium Level 134L, Potassium Level 3.5, Chloride Level 92L, Carbon Dioxide Level 26, Anion Gap 16H, Blood Urea Nitrogen 9, Creatinine 0.8, Estimat Glomerular Filtration Rate > 60, Glucose Level 272H, Calcium Level 9.1, Total Bilirubin 1.2 , Direct Bilirubin 0.4H, Aspartate Amino Transf (AST/SGOT) 31, Alanine Aminotransferase (ALT/SGPT) 23, Alkaline Phosphatase 150H, Total Protein 7.3, Albumin 3.4L, Globulin 3.9, Albumin/Globulin Ratio 0.8L, Amylase Level 29, Lipase 12 Height (Feet): 4 Height (Inches): 4.00 Weight (Pounds): 169 General Appearance: alert EENT: normal ENT inspection Neck: supple Cardiovascular: normal rate Respiratory/Chest: decreased breath sounds Abdomen: normal bowel sounds, non tender, soft Extremities: non-tender DEACON JOHNSON Nov 08, 2016 12:45
[2016-11-08] MEDS ORDERED: D5 1/2NS 1000ml IV ONE (14:46)
--- NOTE | 2016-11-08 16:38 | Pulmonology Progress Note ---
Assessment/Plan Problems: (1) Cholelithiases (2) HTN (hypertension) (3) Gastritis (4) Diabetes mellitus Assessment/Plan IV antibiotics ERCP in am pain management check cbc and bmp in am iv fluids Subjective ROS Limited/Unobtainable: No Interval Events: still pain in RUQ Allergies: Coded Allergies: No Known Allergies (Unverified , 02/25/15) Objective Last 24 Hour Vital Signs Date Time Temp Pulse Resp B/P Pulse Ox O2 Delivery O2 Flow Rate FiO2 11/08/16 11:13 98.4 119 18 128/71 97 Room Air 11/08/16 09:28 98.4 11/08/16 08:17 104.9 144 20 172/78 95 Room Air 11/08/16 04:00 98.1 98 20 113/34 96 Room Air 11/08/16 00:00 102.0 121 20 104/60 93 Room Air 11/07/16 20:12 98.9 11/07/16 20:00 98.8 90 16 139/ 94 Room Air Intake and Output 11/07/16 11/08/16 19:00 07:00 Intake Total 375 ml 587.5 ml Balance 375 ml 587.5 ml Intake IV Total 375 ml 587.5 ml # Voids 2 4 Objective General Appearance: WD/WN, Lines, tubes and drains: peripheral, central line HEENT: normocephalic Neck: non-tender Respiratory/Chest: chest wall non-tender, lungs clear Cardiovascular/Chest: normal peripheral pulses, normal rate Abdomen: normal bowel sounds, non tender Genitourinary/Rectal: normal genital exam Extremities: normal range of motion 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 Laboratory Tests 11/08/16 06:15: White Blood Count 15.8H, Red Blood Count 4.19L, Hemoglobin 12.8, Hematocrit 37.8 , Mean Corpuscular Volume 90, Mean Corpuscular Hemoglobin 30.5, Mean Corpuscular Hemoglobin Concent 33.9, Red Cell Distribution Width 12.4, Platelet Count 328, Mean Platelet Volume 6.4L, Neutrophils (%) (Auto) , Lymphocytes (%) ( Auto) , Monocytes (%) (Auto) , Eosinophils (%) (Auto) , Basophils (%) (Auto) , Differential Total Cells Counted 100, Neutrophils % (Manual) 93H, Lymphocytes % (Manual) 2L, Monocytes % (Manual) 5, Eosinophils % (Manual) 0, Basophils % ( Manual) 0, Band Neutrophils 0, Platelet Estimate Adequate, Platelet Morphology Normal, Red Blood Cell Morphology Normal, Prothrombin Time 11.7H, Prothromb Time International Ratio 1.1, Activated Partial Thromboplast Time 29, Sodium Level 134L, Potassium Level 3.5, Chloride Level 92L, Carbon Dioxide Level 26, Anion Gap 16H, Blood Urea Nitrogen 9, Creatinine 0.8, Estimat Glomerular Filtration Rate > 60, Glucose Level 272H, Calcium Level 9.1, Total Bilirubin 1.2 , Direct Bilirubin 0.4H, Aspartate Amino Transf (AST/SGOT) 31, Alanine Aminotransferase (ALT/SGPT) 23, Alkaline Phosphatase 150H, Total Protein 7.3, Albumin 3.4L, Globulin 3.9, Albumin/Globulin Ratio 0.8L, Amylase Level 29, Lipase 12 Current Medications Medications (Trade) Dose Ordered Sig/Zhao Route PRN Reason Start Time Stop Time Status Last Admin Dose Admin Acetaminophen (Tylenol) 650 mg Q4H PRN ORAL fever 11/07/16 07:30 12/07/16 07:29 11/08/16 08:29 Al Hydroxide/Mg Hydroxide (Mylanta II) 30 ml Q6H PRN ORAL dyspepsia 11/07/16 07:30 12/07/16 07:29 Dextrose STAT PRN IV Hypoglycemia 11/07/16 07:30 12/07/16 07:29 Dextrose/Sodium Chloride (D5 0.45% NS) 1,000 ml @ 75 mls/hr [id number] IV 11/07/16 07:45 12/07/16 07:44 11/07/16 21:52 Diphenhydramine HCl (Benadryl) 25 mg Q6H PRN ORAL Itching/Pruritis 11/07/16 07:30 12/07/16 07:29 Heparin Sodium (Porcine) (Heparin 5000 units/ml) 5,000 units EVERY 12 HOURS SUBQ 11/07/16 09:00 12/07/16 08:59 11/07/16 10:31 Insulin Aspart (NovoLOG) BEFORE MEALS AND HS SUBQ 11/07/16 22:00 12/07/16 21:59 11/08/16 14:53 Morphine Sulfate (Morphine Sulfate) 2 mg Q4H PRN IVP severe Pain (Pain Scale 7-10) 11/07/16 07:30 11/14/16 07:29 11/08/16 00:43 Nitroglycerin (Ntg) 0.4 mg Q5M X 3 DOSES PRN SL Prn Chest Pain 11/07/16 07:30 12/07/16 07:29 Ondansetron HCl (Zofran) 4 mg Q6H PRN IVP Nausea & Vomiting 11/07/16 07:30 12/07/16 07:29 Piperacillin Sod/ Tazobactam Sod/ Sodium Chloride (Zosyn/Sodium Chloride) 110 ml @ 27.5 mls/hr Q8HR IVPB 11/07/16 09:00 11/14/16 08:59 11/08/16 14:54 Polyethylene Glycol (Miralax) 17 gm HSPRN PRN ORAL Constipation 11/07/16 07:30 12/07/16 07:29 Temazepam (Restoril) 15 mg HSPRN PRN ORAL Insomnia 11/07/16 07:30 11/14/16 07:29 LUAN RESENDEZ Nov 08, 2016 16:38
--- NOTE | 2016-11-08 17:08 | Consultation ---
DATE OF CONSULTATION: INFECTIOUS DISEASE CONSULTATION CONSULTING PHYSICIAN: Dennys Aceves M.D. REFERRING PHYSICIAN: Ross Barillas M.D. REASON FOR CONSULTATION: Evaluation of the patient for fever, also cholangitis, antibiotic management. HISTORY OF PRESENT ILLNESS: The patient is a 61-year-old female with multiple medical problems as listed below, who was brought to the hospital due to upper abdominal pain. The patient was found to have fever and leukocytosis, has been started on IV Zosyn. Infectious Disease consultation requested for further evaluation of the patient's antibiotic management. PAST MEDICAL HISTORY: 1. Hypertension. 2. Diabetes. ALLERGIES: No known drug allergies. SOCIAL HISTORY: Negative for alcohol, drug or smoking. FAMILY HISTORY: Noncontributory. REVIEW OF SYSTEMS: HEENT: No recent change in vision or hearing. Pulmonary: No cough or shortness of breath. Cardiovascular: No chest pain. Gastrointestinal: Abdomen, as mentioned. Genitourinary: No dysuria. PHYSICAL EXAMINATION: VITAL SIGNS: Temperature 104.9 degrees, blood pressure 172/78, pulse is 66, and respiratory rate 18. HEENT: Mild pale conjunctivae. No icterus. NECK: Supple. CHEST: Coarse breathing sounds. HEART: S1 and S2. ABDOMEN: Obese. The patient has right upper quadrant and epigastric tenderness. NEUROLOGICAL: Awake and alert. LABORATORY AND DIAGNOSTIC DATA: White blood cell is 15.8, hemoglobin 12, and platelets 328,000. BUN 9 and creatinine 0.8. ALT and AST unremarkable and alkaline phosphatase of 115. CT scan of the abdomen showed cholelithiasis and choledocholithiasis. ASSESSMENT: 1. Fever. 2. Sepsis. 3. Leukocytosis. 4. Probable cholangitis. 5. Cholelithiasis and choledocholithiasis. 6. Obesity. 7. Hypertension. 8. Diabetes. PLAN: 1. We will continue the patient on IV Zosyn. 2. Monitor blood culture. 3. Monitor CBC. 4. Monitor BMP. 5. Monitor liver function tests. 6. GI consultation requested. The patient may need ERCP and eventually cholecystectomy. Thank you, Dr. Barillas, for allowing me to participate in the care of this patient. I will follow the patient with you during this hospitalization. Dennys Aceves M.D. DR: FROILAN JOB#: [id number] CC:
[2016-11-09] VITALS (11 sets, daily range): BP systolic 94–114; BP diastolic 37–78
[2016-11-09] MEDS: Piperacillin/Tazobactam 3.375 GM in NS 110 ML IVPB SCH ×3 (05:11→22:27)
[2016-11-09] MEDS: NovoLOG Insulin Flexpen SUBQ SCH ×4 (06:04→20:29)
[2016-11-09 07:18] LABS: INR 1.3 (0.9-1.1); PROTHROMBIN TIME 12.8 SEC (9.30-11.50)
[2016-11-09 07:30] LABS: ALANINE AMINOTRANSFERASE 35 U/L (3-33); ALBUMIN/GLOBULIN RATIO 0.7 (1.0-2.7); ANION GAP 15 (5-15); ASPARTATE AMINO TRANSFERASE 36 U/L (5-40); CALCIUM 8.9 mg/dL (8.6-10.2); CARBON DIOXIDE 26 mEQ/L (20-30); CHLORIDE 93 mEQ/L (98-107); CREATININE 0.8 mg/dL (0.5-0.9); GLOMERULAR FILTRATION RATE > 60 mL/min (>60); HEMOLYSIS 0; POTASSIUM 3.2 mEQ/L (3.4-4.9); SODIUM 134 mEQ/L (135-145); TOTAL PROTEIN 6.9 g/dL (6.6-8.7)
[2016-11-09 07:41] LABS: MEAN CORPUSCULAR HEMOGLOBIN 30.3 PG (27.0-31.0); MEAN CORPUSCULAR HGB CONC 32.9 G/DL (32.0-36.0); MEAN CORPUSCULAR VOLUME 92 FL (80-99); MEAN PLATELET VOLUME 6.1 FL (6.5-10.1); PLATELET COUNT 247 K/UL (150-450); RED BLOOD COUNT 3.84 M/UL (4.20-5.40); RED CELL DISTRIBUTION WIDTH 12.4 % (11.6-14.8); WHITE BLOOD COUNT 18.4 K/UL (4.8-10.8)
[2016-11-09 07:52] LABS: BILIRUBIN,DIRECT 0.7 mg/dL (0.1-0.3)
--- NOTE | 2016-11-09 08:25 | Pulmonology Progress Note ---
Assessment/Plan Assessment/Plan ASSESSMENT cholelithiasis choledocholithiasis recurrent biliary colic sepsis hx of HTN DM PLAN OF CARE MS floor abx, ID follows GI follows IVF ERCP today pain management CT A/P c/w cholelithiasis a/emetic prn replace K , check K and Mg in am additionally change IVF with 20 KCL BP currently on the low side, no anti HTN meds for now BS management wit SS of insulin DVT prophylaxis case discussed and evaluated by supervising physician Subjective Allergies: Coded Allergies: No Known Allergies (Unverified , 02/25/15) Subjective leukocytosis trending up afebrile bili trending up ERCP today K-3,2 Objective Last 24 Hour Vital Signs Date Time Temp Pulse Resp B/P Pulse Ox O2 Delivery O2 Flow Rate FiO2 11/09/16 07:24 97.3 90 16 107/63 100 Room Air 11/09/16 04:00 98.1 96 20 94/37 94 Room Air 11/09/16 00:10 98.1 11/09/16 00:00 98.1 100 20 102/59 93 Room Air 11/08/16 20:00 97.8 102 17 106/57 94 Room Air 11/08/16 16:00 100.8 115 16 105/54 95 Room Air 11/08/16 11:13 98.4 119 18 128/71 97 Room Air 11/08/16 09:28 98.4 Intake and Output 11/08/16 11/09/16 19:00 07:00 Intake Total 232.5 ml 112.2 ml Output Total 50 ml Balance 232.5 ml 62.2 ml Intake IV Total 232.5 ml 112.2 ml Output Emesis 50 ml # Voids 1 2 General Appearance: no acute distress, other - obese female HEENT: normocephalic, atraumatic, anicteric Respiratory/Chest: chest wall non-tender, lungs clear, no accessory muscle use Cardiovascular: normal peripheral pulses, normal rate, no JVD Abdomen: normal bowel sounds - RUQ TTP, no rebound, no guarding, abdomen obese 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, no motor/sensory deficits, alert, oriented x 3, responsive Musculoskeletal: normal muscle bulk Laboratory Tests 11/09/16 04:50: White Blood Count 18.4H, Red Blood Count 3.84L, Hemoglobin 11.6L, Hematocrit 35.3L, Mean Corpuscular Volume 92, Mean Corpuscular Hemoglobin 30.3, Mean Corpuscular Hemoglobin Concent 32.9, Red Cell Distribution Width 12.4, Platelet Count 247, Mean Platelet Volume 6.1L, Neutrophils (%) (Auto) , Lymphocytes (%) ( Auto) , Monocytes (%) (Auto) , Eosinophils (%) (Auto) , Basophils (%) (Auto) , Neutrophils % (Manual) [Pending], Lymphocytes % (Manual) [Pending], Platelet Estimate [Pending], Platelet Morphology [Pending], Prothrombin Time 12.8H, Prothromb Time International Ratio 1.3H, Activated Partial Thromboplast Time 33 , Sodium Level 134L, Potassium Level 3.2L, Chloride Level 93L, Carbon Dioxide Level 26, Anion Gap 15, Blood Urea Nitrogen 11, Creatinine 0.8, Estimat Glomerular Filtration Rate > 60, Glucose Level 151#H, Calcium Level 8.9, Total Bilirubin 1.4H, Direct Bilirubin 0.7H, Aspartate Amino Transf (AST/SGOT) 36, Alanine Aminotransferase (ALT/SGPT) 35H, Alkaline Phosphatase 130H, Total Protein 6.9, Albumin 3.0L, Globulin 3.9, Albumin/Globulin Ratio 0.7L Current Medications Medications (Trade) Dose Ordered Sig/Zhao Route PRN Reason Start Time Stop Time Status Last Admin Dose Admin Acetaminophen (Tylenol) 650 mg Q4H PRN ORAL fever 11/07/16 07:30 12/07/16 07:29 11/08/16 08:29 Al Hydroxide/Mg Hydroxide (Mylanta II) 30 ml Q6H PRN ORAL dyspepsia 11/07/16 07:30 12/07/16 07:29 Dextrose STAT PRN IV Hypoglycemia 11/07/16 07:30 12/07/16 07:29 Dextrose/Sodium Chloride (D5 0.45% NS) 1,000 ml @ 75 mls/hr [id number] IV 11/07/16 07:45 12/07/16 07:44 11/08/16 23:45 Diphenhydramine HCl (Benadryl) 25 mg Q6H PRN ORAL Itching/Pruritis 11/07/16 07:30 12/07/16 07:29 Heparin Sodium (Porcine) (Heparin 5000 units/ml) 5,000 units EVERY 12 HOURS SUBQ 11/07/16 09:00 12/07/16 08:59 11/07/16 10:31 Insulin Aspart (NovoLOG) BEFORE MEALS AND HS SUBQ 11/07/16 22:00 12/07/16 21:59 11/09/16 06:04 Morphine Sulfate (Morphine Sulfate) 2 mg Q4H PRN IVP severe Pain (Pain Scale 7-10) 11/07/16 07:30 11/14/16 07:29 11/08/16 23:40 Nitroglycerin (Ntg) 0.4 mg Q5M X 3 DOSES PRN SL Prn Chest Pain 11/07/16 07:30 12/07/16 07:29 Ondansetron HCl (Zofran) 4 mg Q6H PRN IVP Nausea & Vomiting 11/07/16 07:30 12/07/16 07:29 11/08/16 19:17 Piperacillin Sod/ Tazobactam Sod/ Sodium Chloride (Zosyn/Sodium Chloride) 110 ml @ 27.5 mls/hr Q8HR IVPB 11/07/16 09:00 11/14/16 08:59 11/09/16 05:11 Polyethylene Glycol (Miralax) 17 gm HSPRN PRN ORAL Constipation 11/07/16 07:30 12/07/16 07:29 Temazepam (Restoril) 15 mg HSPRN PRN ORAL Insomnia 11/07/16 07:30 11/14/16 07:29 Sarah Dee NP (Vanchtein) Nov 09, 2016 08:25
[2016-11-09] MEDS: Heparin 5000 units/ml inj SUBQ SCH ×2 (08:56→20:30)
[2016-11-09] MEDS: Morphine Sulfate 2mg/ml Inj IVP PRN (09:43)
--- NOTE | 2016-11-09 10:18 | Infectious Diseases Prog Note ---
Assessment/Plan Assessment/Plan ASSESSMENT: 61 y/o female with: // Probable gallstone cholangitis / cholangitis - GI following, plan ERCP - elevated LFTs - CT A/P: Cholelithiasis. Punctate calcification in the distal common bile duct with mild biliary ductal dilatation, consistent with choledocholithiasis possible biliary obstruction // Sepsis // Leukocytosis - worse // Fever - improved // DM // Obesity // NKDA // Full Code PLAN: - continue empiric zosyn d# 06-08 - ERCP per GI - f/u cultures - monitor CBC, temperatures - monitor CMP Subjective Allergies: Coded Allergies: No Known Allergies (Unverified , 02/25/15) Subjective fevers improved awaiting ERCP Objective Vital Signs Last 24 Hour Vital Signs Date Time Temp Pulse Resp B/P Pulse Ox O2 Delivery O2 Flow Rate FiO2 11/09/16 07:24 97.3 90 16 107/63 100 Room Air 11/09/16 04:00 98.1 96 20 94/37 94 Room Air 11/09/16 00:10 98.1 11/09/16 00:00 98.1 100 20 102/59 93 Room Air 11/08/16 20:00 97.8 102 17 106/57 94 Room Air 11/08/16 16:00 100.8 115 16 105/54 95 Room Air 11/08/16 11:13 98.4 119 18 128/71 97 Room Air Height (Feet): 4 Height (Inches): 4.00 Weight (Pounds): 169 General Appearance: no acute distress Respiratory/Chest: no respiratory distress Cardiovascular: normal rate, regular rhythm Abdomen: normal bowel sounds, tender Extremities: no edema Laboratory Tests Test 11/09/16 04:50 White Blood Count 18.4 K/UL (4.8-10.8) H Red Blood Count 3.84 M/UL (4.20-5.40) L Hemoglobin 11.6 G/DL (12.0-16.0) L Hematocrit 35.3 % (37.0-47.0) L Mean Corpuscular Volume 92 FL (80-99) Mean Corpuscular Hemoglobin 30.3 PG (27.0-31.0) Mean Corpuscular Hemoglobin Concent 32.9 G/DL (32.0-36.0) Red Cell Distribution Width 12.4 % (11.6-14.8) Platelet Count 247 K/UL (150-450) Mean Platelet Volume 6.1 FL (6.5-10.1) L Neutrophils (%) (Auto) % (45.0-75.0) Lymphocytes (%) (Auto) % (20.0-45.0) Monocytes (%) (Auto) % (1.0-10.0) Eosinophils (%) (Auto) % (0.0-3.0) Basophils (%) (Auto) % (0.0-2.0) Neutrophils % (Manual) Pending Lymphocytes % (Manual) Pending Platelet Estimate Pending Platelet Morphology Pending Prothrombin Time 12.8 SEC (9.30-11.50) H Prothromb Time International Ratio 1.3 (0.9-1.1) H Activated Partial Thromboplast Time 33 SEC (23-33) Sodium Level 134 mEQ/L (135-145) L Potassium Level 3.2 mEQ/L (3.4-4.9) L Chloride Level 93 mEQ/L (98-107) L Carbon Dioxide Level 26 mEQ/L (20-30) Anion Gap 15 (5-15) Blood Urea Nitrogen 11 mg/dL (7-23) Creatinine 0.8 mg/dL (0.5-0.9) Estimat Glomerular Filtration Rate > 60 mL/min (>60) Glucose Level 151 mg/dL (74-106) #H Calcium Level 8.9 mg/dL (8.6-10.2) Total Bilirubin 1.4 mg/dL (0.0-1.2) H Direct Bilirubin 0.7 mg/dL (0.1-0.3) H Aspartate Amino Transf (AST/SGOT) 36 U/L (5-40) Alanine Aminotransferase (ALT/SGPT) 35 U/L (3-33) H Alkaline Phosphatase 130 U/L (35-104) H Total Protein 6.9 g/dL (6.6-8.7) Albumin 3.0 g/dL (3.5-5.2) L Globulin 3.9 g/dL Albumin/Globulin Ratio 0.7 (1.0-2.7) L Current Medications Medications (Trade) Dose Ordered Sig/Zhao Route PRN Reason Start Time Stop Time Status Last Admin Dose Admin Acetaminophen (Tylenol) 650 mg Q4H PRN ORAL fever 11/07/16 07:30 12/07/16 07:29 11/08/16 08:29 Al Hydroxide/Mg Hydroxide (Mylanta II) 30 ml Q6H PRN ORAL dyspepsia 11/07/16 07:30 12/07/16 07:29 Dextrose STAT PRN IV Hypoglycemia 11/07/16 07:30 12/07/16 07:29 Dextrose/ Electrolytes 1,000 ml @ 75 mls/hr [id number] IV 11/09/16 10:00 12/09/16 09:59 Diphenhydramine HCl (Benadryl) 25 mg Q6H PRN ORAL Itching/Pruritis 11/07/16 07:30 12/07/16 07:29 Heparin Sodium (Porcine) (Heparin 5000 units/ml) 5,000 units EVERY 12 HOURS SUBQ 11/07/16 09:00 12/07/16 08:59 11/07/16 10:31 Insulin Aspart BEFORE MEALS AND HS SUBQ 11/07/16 22:00 12/07/16 21:59 11/09/16 06:04 Morphine Sulfate (Morphine Sulfate) 2 mg Q4H PRN IVP severe Pain (Pain Scale 7-10) 11/07/16 07:30 11/14/16 07:29 11/09/16 09:43 Nitroglycerin (Ntg) 0.4 mg Q5M X 3 DOSES PRN SL Prn Chest Pain 11/07/16 07:30 12/07/16 07:29 Ondansetron HCl (Zofran) 4 mg Q6H PRN IVP Nausea & Vomiting 11/07/16 07:30 12/07/16 07:29 11/08/16 19:17 Piperacillin Sod/ Tazobactam Sod/ Sodium Chloride (Zosyn/Sodium Chloride) 110 ml @ 27.5 mls/hr Q8HR IVPB 11/07/16 09:00 11/14/16 08:59 11/09/16 05:11 Polyethylene Glycol (Miralax) 17 gm HSPRN PRN ORAL Constipation 11/07/16 07:30 12/07/16 07:29 Potassium Chloride (KCl 10mEq/100ml Premix) 100 ml @ 100 mls/hr Q1HR IVPB 11/09/16 09:00 11/09/16 10:59 11/09/16 09:23 Temazepam (Restoril) 15 mg HSPRN PRN ORAL Insomnia 11/07/16 07:30 11/14/16 07:29 MICHAELA PLUNKETT 17, 2017 10:18
[2016-11-09 10:59] LABS: BAND NEUTROPHILS % (MANUAL) 12 % (0-8); BASOPHILS % (MANUAL) 0 % (0-2); EOSINOPHILS % (MANUAL) 0 % (0-3); LYMPHOCYTES % (MANUAL) 8 % (20-45); NEUTROPHILS % (MANUAL) 73 % (45-75); PLATELET ESTIMATE ADEQUATE; PLATELET MORPHOLOGY NORMAL; TOTAL CELLS COUNTED 100
[2016-11-09 11:00] LABS: HYPOCHROMASIA 1+
--- NOTE | 2016-11-09 11:52 | Pre-Procedure Note/Attestation ---
Pre-Procedure Note/Attestation Complete Prior to Procedure Planned Procedure: not applicable Procedure Narrative: ercp Indications for Procedure Pre-Operative Diagnosis: choledocholithiasis Attestation I attest that I discussed the nature of the procedure; its benefits; risks and complications; and alternatives (and the risks and benefits of such alternatives ), prior to the procedure, with the patient (or the patient's legal fuels sales representative). I attest that, if there was a reasonable possibility of needing a blood transfusion, the patient (or the patient's legal fuels sales representative) was given the [facility] standardized written summary, pursuant to the Augie Jaime Blood Safety Act ([place] Health and Safety Code # 1645, as amended). I attest that I re-evaluated the patient just prior to the surgery and that there has been no change in the patient's H&P, except as documented below: DEACON JOHNSON Nov 09, 2016 11:52
[2016-11-09] MEDS: D5 1/2NS w/KCl 20mEq 1,000 ML IV SCH ×2 (12:15→23:25)
[2016-11-09] MEDS ORDERED: Indomethacin 50mg Supp ONE (12:28)
[2016-11-09] MEDS ORDERED: Iothalamate Meglumine 60% 30ML INJ ONE (12:28)
[2016-11-09] MEDS ORDERED: Propofol 10mg/ml 20ml IV ONE (13:00)
[2016-11-09] MEDS ORDERED: NS 550ML IV ONE (13:07)
--- NOTE | 2016-11-09 13:28 | Anethesia Preoperative Eval ---
Anesthesia Pre-op PMH/ROS General Date of Evaluation: Nov 09, 2016 Time of Evaluation: 13:00 Anesthesiologist: Jade ASA Score: ASA 3 Mallampati Score Class I : Soft palate, uvula, fauces, pillars visible Class II: Soft palate, uvula, fauces visible Class III: Soft palate, base of uvula visible Class IV: Only hard plate visible Mallampati Classification: Class II Surgeon: Eugene Diagnosis: Gall Stones Surgical Procedure: ERCP Family History: no anesthesia problems Allergies: Coded Allergies: No Known Allergies (Unverified , 02/25/15) Medications: see eMAR Past Medical History Cardiovascular: Reports: HTN Pulmonary: Reports: COPD Gastrointestinal/Genitourinary: Reports: GERD Neurologic/Psychiatric: Denies: CVA, TIA, dementia, depression/anxiety, other Endocrine: Reports: DM HEENT: Denies: [place] (L), [place] (R), cataract (L), cataract (R), glaucoma, other Hematology/Immune: Denies: DVT, anemia, bleeding disorder, other Musculoskeletal/Integumentary: Reports: DJD Anesthesia Pre-op Phys. Exam Physician Exam Last Vital Signs Date Time Temp Pulse Resp B/P Pulse Ox O2 Delivery O2 Flow Rate FiO2 11/09/16 11:09 98.1 96 15 108/67 94 Room Air Neurologic: CN 2-12 intact Cardiovascular: RRR Airway Exam Mallampati Score: Class II Anesthesia Pre-op A/P Labs Hematology Test 11/09/16 04:50 White Blood Count 18.4 K/UL (4.8-10.8) H Red Blood Count 3.84 M/UL (4.20-5.40) L Hemoglobin 11.6 G/DL (12.0-16.0) L Hematocrit 35.3 % (37.0-47.0) L Mean Corpuscular Volume 92 FL (80-99) Mean Corpuscular Hemoglobin 30.3 PG (27.0-31.0) Mean Corpuscular Hemoglobin Concent 32.9 G/DL (32.0-36.0) Red Cell Distribution Width 12.4 % (11.6-14.8) Platelet Count 247 K/UL (150-450) Mean Platelet Volume 6.1 FL (6.5-10.1) L Neutrophils (%) (Auto) % (45.0-75.0) Lymphocytes (%) (Auto) % (20.0-45.0) Monocytes (%) (Auto) % (1.0-10.0) Eosinophils (%) (Auto) % (0.0-3.0) Basophils (%) (Auto) % (0.0-2.0) Differential Total Cells Counted 100 Neutrophils % (Manual) 73 % (45-75) Lymphocytes % (Manual) 8 % (20-45) L Monocytes % (Manual) 7 % (1-10) Eosinophils % (Manual) 0 % (0-3) Basophils % (Manual) 0 % (0-2) Band Neutrophils 12 % (0-8) H Platelet Estimate Adequate Platelet Morphology Normal Hypochromasia 1+ Coagulation Test 11/09/16 04:50 Prothrombin Time 12.8 SEC (9.30-11.50) H Prothromb Time International Ratio 1.3 (0.9-1.1) H Activated Partial Thromboplast Time 33 SEC (23-33) Chemistry Test 11/09/16 04:50 Sodium Level 134 mEQ/L (135-145) L Potassium Level 3.2 mEQ/L (3.4-4.9) L Chloride Level 93 mEQ/L (98-107) L Carbon Dioxide Level 26 mEQ/L (20-30) Anion Gap 15 (5-15) Blood Urea Nitrogen 11 mg/dL (7-23) Creatinine 0.8 mg/dL (0.5-0.9) Estimat Glomerular Filtration Rate > 60 mL/min (>60) Glucose Level 151 mg/dL (74-106) #H Calcium Level 8.9 mg/dL (8.6-10.2) Total Bilirubin 1.4 mg/dL (0.0-1.2) H Direct Bilirubin 0.7 mg/dL (0.1-0.3) H Aspartate Amino Transf (AST/SGOT) 36 U/L (5-40) Alanine Aminotransferase (ALT/SGPT) 35 U/L (3-33) H Alkaline Phosphatase 130 U/L (35-104) H Total Protein 6.9 g/dL (6.6-8.7) Albumin 3.0 g/dL (3.5-5.2) L Globulin 3.9 g/dL Albumin/Globulin Ratio 0.7 (1.0-2.7) L YESSI MCCORMICK M.D. Nov 09, 2016 13:28
[2016-11-09] MEDS ORDERED: Hydromorphone 0.5mg/0.5ml inj IVP PRN (13:30)
[2016-11-09] MEDS ORDERED: fentaNYL 100 mcg/2 mL IV PRN (13:30)
[2016-11-09] MEDS ORDERED: Norco 5mg/325mg tab ORAL PRN (13:30)
--- NOTE | 2016-11-09 13:47 | Immediate Post-Op Evaluation ---
Immediate Post-Op Evalulation Immediate Post-Op Evalulation Procedure: ERCP Date of Evaluation: Nov 09, 2016 Time of Evaluation: 13:46 IV Fluids: 300 Blood Products: 0 Estimated Blood Loss: 0 Urinary Output: 0 Blood Pressure Systolic: 120 Blood Pressure Diastolic: 80 Pulse Rate: 95 Respiratory Rate: 20 O2 Sat by Pulse Oximetry: 98 Temperature (Fahrenheit): 98 Pain Score (1-10): 2 Nausea: No Vomiting: No Complications na Patient Status: awake Hydration Status: adequate Given Within 1 Hr of Incision: YESSI Levy M.D. Nov 09, 2016 13:47
--- NOTE | 2016-11-09 13:50 | 48 Hour Post Anesthesia Eval ---
Post Anesthesia Evaluation Procedure: ERCP Date of Evaluation: Nov 09, 2016 Time of Evaluation: 15:10 Blood Pressure Systolic: 130 0: 80 Pulse Rate: 87 Respiratory Rate: 20 Temperature (Fahrenheit): 98 O2 Sat by Pulse Oximetry: 98 Airway: patent Nausea: No Vomiting: No Pain Intensity: 3 Hydration Status: adequate Cardiopulmonary Status: stable Mental Status/LOC: patient returned to baseline Follow-up Care/Observations: na Post-Anesthesia Complications: na Follow-up care needed: N/A YESSI MCCORMICK M.D. Nov 09, 2016 13:50
--- NOTE | 2016-11-09 16:31 | Diagnostic Imaging Report ---
Indication: ABD PAIN Technique: Digital intraoperative images Comparison: Reference made to CT scan 11/07/2016 Findings: Intraoperative images demonstrate filling of mildly ectatic common bile duct a subsequent images document limit of stone extraction balloon. Impression: Intraoperative imaging, as described
[2016-11-10] VITALS (7 sets, daily range): BP systolic 81–115; BP diastolic 52–68
[2016-11-10] MEDS: Piperacillin/Tazobactam 3.375 GM in NS 110 ML IVPB SCH ×3 (05:45→21:44)
[2016-11-10] MEDS: NovoLOG Insulin Flexpen SUBQ SCH ×4 (05:47→21:00)
[2016-11-10 07:34] LABS: ALBUMIN/GLOBULIN RATIO 0.8 (1.0-2.7); CALCIUM 8.7 mg/dL (8.6-10.2); CREATININE 1.2 mg/dL (0.5-0.9); MAGNESIUM 2.5 mg/dL (1.7-2.5); POTASSIUM 3.5 mEQ/L (3.4-4.9); TOTAL PROTEIN 6.3 g/dL (6.6-8.7)
[2016-11-10 07:48] LABS: BILIRUBIN,DIRECT 1.6 mg/dL (0.1-0.3)
--- NOTE | 2016-11-10 08:03 | General Progress Note ---
Assessment/Plan Problem List: (1) Cholelithiases ICD Codes: K80.20 - Calculus of gallbladder without cholecystitis without obstruction SNOMED: 356954019 (2) Diabetes mellitus ICD Codes: E11.9 - Type 2 diabetes mellitus without complications SNOMED: 39270111 (3) Choledocholithiasis ICD Codes: K80.50 - Calculus of bile duct without cholangitis or cholecystitis without obstruction SNOMED: 638296592 Assessment/Plan s/p ercp yesterday ? worsening og LFTS but patient is feeling much better advance diet repeat labs surg consult Subjective ROS Limited/Unobtainable: Yes Allergies: Coded Allergies: No Known Allergies (Unverified , 02/25/15) Subjective feeling much better Objective Last 24 Hour Vital Signs Date Time Temp Pulse Resp B/P Pulse Ox O2 Delivery O2 Flow Rate FiO2 11/10/16 07:50 97.2 76 14 96/56 100 Room Air 11/10/16 04:00 97.5 72 20 93/55 97 Room Air 11/10/16 00:22 102/66 11/10/16 00:00 96.8 67 20 81/52 97 Room Air 11/09/16 20:00 96.3 71 15 97/50 94 Room Air 11/09/16 16:00 96.3 87 15 105/48 98 Room Air 11/09/16 14:42 97.9 90 17 112/75 96 Nasal Cannula 3.0 11/09/16 14:15 93 15 102/78 96 Nasal Cannula 3.0 11/09/16 14:05 95 19 106/67 98 Nasal Cannula 3.0 11/09/16 14:00 95 19 114/74 98 Nasal Cannula 3.0 11/09/16 13:55 97.0 98 12 106/67 98 Nasal Cannula 3.0 11/09/16 13:50 87 20 98 11/09/16 13:47 95 20 98 11/09/16 11:09 98.1 96 15 108/67 94 Room Air Intake and Output 11/09/16 11/10/16 19:00 07:00 Intake Total 82.5 ml 910.0 ml Balance 82.5 ml 910.0 ml Intake Oral 0 ml 480 ml IV Total 82.5 ml 430.0 ml # Voids 2 5 # Bowel Movements 1 Laboratory Tests 11/10/16 04:50: Sodium Level 132L, Potassium Level 3.5, Chloride Level 91L, Carbon Dioxide Level 25, Anion Gap 16H, Blood Urea Nitrogen 24H, Creatinine 1.2H, Estimat Glomerular Filtration Rate 46.0, Glucose Level 137H, Calcium Level 8.7, Magnesium Level 2.5, Total Bilirubin 2.1H, Direct Bilirubin 1.6H, Aspartate Amino Transf (AST/SGOT) 39, Alanine Aminotransferase (ALT/SGPT) 38H, Alkaline Phosphatase 215H, Total Protein 6.3L, Albumin 2.8L, Globulin 3.5, Albumin/ Globulin Ratio 0.8L Height (Feet): 4 Height (Inches): 4.00 Weight (Pounds): 169 General Appearance: alert EENT: normal ENT inspection Neck: supple Cardiovascular: normal rate Respiratory/Chest: lungs clear Abdomen: normal bowel sounds, non tender, soft Extremities: non-tender DEACON JOHNSON Nov 10, 2016 08:03
--- NOTE | 2016-11-10 08:15 | Endoscopy Procedure Note ---
Endoscopy Procedure Note Indication for Procedure: choledocholithiasis Procedures Performed: ERCP Operative Findings/Diagnosis: same Specimen: none Pt Tolerated Procedure Well: Yes Estimated Blood Loss: none Anesthesiologist: samanta Anesthesia: MAC Implant(s) used?: No 50 yrs or older w/o bx or poly: Not Applicable 10yrs. F/U not recommended: Not Applicable DEACON JOHNSON Nov 10, 2016 08:15
[2016-11-10] MEDS: Heparin 5000 units/ml inj SUBQ SCH ×2 (09:11→21:46)
--- NOTE | 2016-11-10 10:29 | Infectious Diseases Prog Note ---
Assessment/Plan Assessment/Plan ASSESSMENT: 61 y/o female with: // GNR bacteremia, m/l biliary source - C&S pending // Probable recurrent gallstone cholangitis / choledocholithiasis - surgical eval pending - SP ERCP 11/09 - elevated LFTs - CT A/P: Cholelithiasis. Punctate calcification in the distal common bile duct with mild biliary ductal dilatation, consistent with choledocholithiasis possible biliary obstruction // Sepsis // Leukocytosis - worse post-procedure // Fever - improved // DM // Obesity // NKDA // Full Code PLAN: - continue empiric zosyn d# - repeat BCx to document clearance - f/u cultures - f/u surgical eval - monitor CBC, temperatures - monitor CMP Subjective Allergies: Coded Allergies: No Known Allergies (Unverified , 02/25/15) Subjective fevers resolved, WBC up SP ERCP Objective Vital Signs Last 24 Hour Vital Signs Date Time Temp Pulse Resp B/P Pulse Ox O2 Delivery O2 Flow Rate FiO2 11/10/16 07:50 97.2 76 14 96/56 100 Room Air 11/10/16 04:00 97.5 72 20 93/55 97 Room Air 11/10/16 00:22 102/66 11/10/16 00:00 96.8 67 20 81/52 97 Room Air 11/09/16 20:00 96.3 71 15 97/50 94 Room Air 11/09/16 16:00 96.3 87 15 105/48 98 Room Air 11/09/16 14:42 97.9 90 17 112/75 96 Nasal Cannula 3.0 11/09/16 14:15 93 15 102/78 96 Nasal Cannula 3.0 11/09/16 14:05 95 19 106/67 98 Nasal Cannula 3.0 11/09/16 14:00 95 19 114/74 98 Nasal Cannula 3.0 11/09/16 13:55 97.0 98 12 106/67 98 Nasal Cannula 3.0 11/09/16 13:50 87 20 98 11/09/16 13:47 95 20 98 11/09/16 11:09 98.1 96 15 108/67 94 Room Air Height (Feet): 4 Height (Inches): 4.00 Weight (Pounds): 169 General Appearance: no acute distress Respiratory/Chest: no respiratory distress Cardiovascular: normal rate, regular rhythm Abdomen: normal bowel sounds, soft, non tender, non distended Microbiology Date/Time Source Procedure Growth Status 11/08/16 19:16 Blood Blood Culture - Preliminary Gram Negative Elmo Resulted Laboratory Tests Test 11/10/16 04:50 Sodium Level 132 mEQ/L (135-145) L Potassium Level 3.5 mEQ/L (3.4-4.9) Chloride Level 91 mEQ/L (98-107) L Carbon Dioxide Level 25 mEQ/L (20-30) Anion Gap 16 (5-15) H Blood Urea Nitrogen 24 mg/dL (7-23) H Creatinine 1.2 mg/dL (0.5-0.9) H Estimat Glomerular Filtration Rate 46.0 mL/min (>60) Glucose Level 137 mg/dL (74-106) H Calcium Level 8.7 mg/dL (8.6-10.2) Magnesium Level 2.5 mg/dL (1.7-2.5) Total Bilirubin 2.1 mg/dL (0.0-1.2) H Direct Bilirubin 1.6 mg/dL (0.1-0.3) H Aspartate Amino Transf (AST/SGOT) 39 U/L (5-40) Alanine Aminotransferase (ALT/SGPT) 38 U/L (3-33) H Alkaline Phosphatase 215 U/L (35-104) H Total Protein 6.3 g/dL (6.6-8.7) L Albumin 2.8 g/dL (3.5-5.2) L Globulin 3.5 g/dL Albumin/Globulin Ratio 0.8 (1.0-2.7) L Current Medications Medications (Trade) Dose Ordered Sig/Zhao Route PRN Reason Start Time Stop Time Status Last Admin Dose Admin Acetaminophen (Tylenol) 650 mg Q4H PRN ORAL fever 11/07/16 07:30 12/07/16 07:29 11/08/16 08:29 Al Hydroxide/Mg Hydroxide (Mylanta II) 30 ml Q6H PRN ORAL dyspepsia 11/07/16 07:30 12/07/16 07:29 11/09/16 20:28 Dextrose STAT PRN IV Hypoglycemia 11/07/16 07:30 12/07/16 07:29 Dextrose/ Electrolytes (D5 0.45%NS W/ KCl 20mEq) 1,000 ml @ 75 mls/hr [id number] IV 11/09/16 10:00 12/09/16 09:59 11/09/16 23:25 Diphenhydramine HCl (Benadryl) 25 mg Q6H PRN ORAL Itching/Pruritis 11/07/16 07:30 12/07/16 07:29 Heparin Sodium (Porcine) (Heparin 5000 units/ml) 5,000 units EVERY 12 HOURS SUBQ 11/07/16 09:00 12/07/16 08:59 11/10/16 09:11 Insulin Aspart BEFORE MEALS AND HS SUBQ 11/07/16 22:00 12/07/16 21:59 11/10/16 05:47 Morphine Sulfate (Morphine Sulfate) 2 mg Q4H PRN IVP severe Pain (Pain Scale 7-10) 11/07/16 07:30 11/14/16 07:29 11/09/16 09:43 Nitroglycerin (Ntg) 0.4 mg Q5M X 3 DOSES PRN SL Prn Chest Pain 11/07/16 07:30 12/07/16 07:29 Ondansetron HCl (Zofran) 4 mg Q6H PRN IVP Nausea & Vomiting 11/07/16 07:30 12/07/16 07:29 11/08/16 19:17 Piperacillin Sod/ Tazobactam Sod/ Sodium Chloride (Zosyn/Sodium Chloride) 110 ml @ 27.5 mls/hr Q8HR IVPB 11/07/16 09:00 11/14/16 08:59 11/10/16 05:45 Polyethylene Glycol (Miralax) 17 gm HSPRN PRN ORAL Constipation 11/07/16 07:30 12/07/16 07:29 Temazepam (Restoril) 15 mg HSPRN PRN ORAL Insomnia 11/07/16 07:30 11/14/16 07:29 MICHAELA PLUNKETT 18, 2017 10:29
--- NOTE | 2016-11-10 11:00 | General Surgery Progress Note ---
General Surgery-Progress Note Subjective Reason for Consult cholelithiasis, choledocholithiasis, s/p ERCP with sweep of small CBD stone, persistent elevated LFT's Procedure Performed ERCP Chief Complaint: Pt had acute RUQ oppain, CT: CBD stone, gallstones, nl GB wall., ERCP with Symptoms: improved Additional Comments sphincterotomy done, pain all resolved. Needs lap cholecystectomy, possible cholangiogram, possible open. Objective Last 24 Hour Vital Signs Date Time Temp Pulse Resp B/P Pulse Ox O2 Delivery O2 Flow Rate FiO2 11/10/16 07:50 97.2 76 14 96/56 100 Room Air 11/10/16 04:00 97.5 72 20 93/55 97 Room Air 11/10/16 00:22 102/66 11/10/16 00:00 96.8 67 20 81/52 97 Room Air 11/09/16 20:00 96.3 71 15 97/50 94 Room Air 11/09/16 16:00 96.3 87 15 105/48 98 Room Air 11/09/16 14:42 97.9 90 17 112/75 96 Nasal Cannula 3.0 11/09/16 14:15 93 15 102/78 96 Nasal Cannula 3.0 11/09/16 14:05 95 19 106/67 98 Nasal Cannula 3.0 11/09/16 14:00 95 19 114/74 98 Nasal Cannula 3.0 11/09/16 13:55 97.0 98 12 106/67 98 Nasal Cannula 3.0 11/09/16 13:50 87 20 98 11/09/16 13:47 95 20 98 11/09/16 11:09 98.1 96 15 108/67 94 Room Air I&O Intake and Output 11/09/16 11/10/16 19:00 07:00 Intake Total 82.5 ml 910.0 ml Balance 82.5 ml 910.0 ml Intake Oral 0 ml 480 ml IV Total 82.5 ml 430.0 ml # Voids 2 5 # Bowel Movements 1 Cardiovascular: RSR Respiratory: clear Abdomen: soft, non-tender Extremities: no edema Laboratory Tests Test 11/10/16 04:50 Sodium Level 132 mEQ/L (135-145) L Potassium Level 3.5 mEQ/L (3.4-4.9) Chloride Level 91 mEQ/L (98-107) L Carbon Dioxide Level 25 mEQ/L (20-30) Anion Gap 16 (5-15) H Blood Urea Nitrogen 24 mg/dL (7-23) H Creatinine 1.2 mg/dL (0.5-0.9) H Estimat Glomerular Filtration Rate 46.0 mL/min (>60) Glucose Level 137 mg/dL (74-106) H Calcium Level 8.7 mg/dL (8.6-10.2) Magnesium Level 2.5 mg/dL (1.7-2.5) Total Bilirubin 2.1 mg/dL (0.0-1.2) H Direct Bilirubin 1.6 mg/dL (0.1-0.3) H Aspartate Amino Transf (AST/SGOT) 39 U/L (5-40) Alanine Aminotransferase (ALT/SGPT) 38 U/L (3-33) H Alkaline Phosphatase 215 U/L (35-104) H Total Protein 6.3 g/dL (6.6-8.7) L Albumin 2.8 g/dL (3.5-5.2) L Globulin 3.5 g/dL Albumin/Globulin Ratio 0.8 (1.0-2.7) L Imaging MRCP: dilated CBD, stone out Assessment Additional Comments Cholelithiasis, choledocholithiasis., Persitent elevated LFT's. Plan Additional Comments Repeat LFT's in am, clear liduids, NPO after MN Saturday, Lap adilene with cholangiogram Saturday with me or . Pt understands and consents. RICKY BARRY Nov 10, 2016 11:00
--- NOTE | 2016-11-10 13:32 | Pulmonology Progress Note ---
Assessment/Plan Assessment/Plan ASSESSMENT cholelithiasis possible cholecystitis recurrent biliary colic sepsis hx of HTN DM elevated bili s/p ERCP, sphincterectomy 11/09 PLAN OF CARE MS floor abx, ID follows GI follows IVF s/p ERCP with sphincterectomy 11/09 CT A/P c/w cholelithiasis surgery follows per surgery: Needs lap cholecystectomy, possible cholangiogram, possible open. rising bili, rising leukocytosis a/emetic prn K and Mg stable after K replacement no anti HTN meds for now BS management wit SS of insulin DVT prophylaxis case discussed and evaluated by supervising physician Subjective Allergies: Coded Allergies: No Known Allergies (Unverified , 02/25/15) Subjective leukocytosis trending up afebrile bili trending up s/p ERCP 11/09 clinically better, no pain, but leukocytosis and bili trending up Objective Last 24 Hour Vital Signs Date Time Temp Pulse Resp B/P Pulse Ox O2 Delivery O2 Flow Rate FiO2 11/10/16 11:15 98.1 78 15 99/60 99 Room Air 11/10/16 07:50 97.2 76 14 96/56 100 Room Air 11/10/16 04:00 97.5 72 20 93/55 97 Room Air 11/10/16 00:22 102/66 11/10/16 00:00 96.8 67 20 81/52 97 Room Air 11/09/16 20:00 96.3 71 15 97/50 94 Room Air 11/09/16 16:00 96.3 87 15 105/48 98 Room Air 11/09/16 14:42 97.9 90 17 112/75 96 Nasal Cannula 3.0 11/09/16 14:15 93 15 102/78 96 Nasal Cannula 3.0 11/09/16 14:05 95 19 106/67 98 Nasal Cannula 3.0 11/09/16 14:00 95 19 114/74 98 Nasal Cannula 3.0 11/09/16 13:55 97.0 98 12 106/67 98 Nasal Cannula 3.0 11/09/16 13:50 87 20 98 11/09/16 13:47 95 20 98 Intake and Output 11/09/16 11/10/16 19:00 07:00 Intake Total 82.5 ml 910.0 ml Balance 82.5 ml 910.0 ml Intake Oral 0 ml 480 ml IV Total 82.5 ml 430.0 ml # Voids 2 5 # Bowel Movements 1 Objective General Appearance: no acute distress, other - obese female HEENT: normocephalic, atraumatic, anicteric Respiratory/Chest: chest wall non-tender, lungs clear, no accessory muscle use Cardiovascular: normal peripheral pulses, normal rate, no JVD Abdomen: normal bowel sounds - RUQ TTP, no rebound, no guarding, abdomen obese Neurologic/Psychiatric: meat boner II-XII grossly normal, no motor/sensory deficits, alert, oriented x 3, responsive Musculoskeletal: normal muscle bulk Microbiology Date/Time Source Procedure Growth Status 11/08/16 19:16 Blood Blood Culture - Preliminary Gram Negative Elmo Resulted 11/08/16 19:06 Blood Blood Culture - Preliminary NO GROWTH AFTER 24 HOURS Resulted Laboratory Tests 11/10/16 04:50: Sodium Level 132L, Potassium Level 3.5, Chloride Level 91L, Carbon Dioxide Level 25, Anion Gap 16H, Blood Urea Nitrogen 24H, Creatinine 1.2H, Estimat Glomerular Filtration Rate 46.0, Glucose Level 137H, Calcium Level 8.7, Magnesium Level 2.5, Total Bilirubin 2.1H, Direct Bilirubin 1.6H, Aspartate Amino Transf (AST/SGOT) 39, Alanine Aminotransferase (ALT/SGPT) 38H, Alkaline Phosphatase 215H, Total Protein 6.3L, Albumin 2.8L, Globulin 3.5, Albumin/ Globulin Ratio 0.8L Current Medications Medications (Trade) Dose Ordered Sig/Zhao Route PRN Reason Start Time Stop Time Status Last Admin Dose Admin Acetaminophen (Tylenol) 650 mg Q4H PRN ORAL fever 11/07/16 07:30 12/07/16 07:29 11/08/16 08:29 Al Hydroxide/Mg Hydroxide (Mylanta II) 30 ml Q6H PRN ORAL dyspepsia 11/07/16 07:30 12/07/16 07:29 11/09/16 20:28 Dextrose STAT PRN IV Hypoglycemia 11/07/16 07:30 12/07/16 07:29 Dextrose/ Electrolytes (D5 0.45%NS W/ KCl 20mEq) 1,000 ml @ 75 mls/hr [id number] IV 11/09/16 10:00 12/09/16 09:59 11/09/16 23:25 Diphenhydramine HCl (Benadryl) 25 mg Q6H PRN ORAL Itching/Pruritis 11/07/16 07:30 12/07/16 07:29 Heparin Sodium (Porcine) (Heparin 5000 units/ml) 5,000 units EVERY 12 HOURS SUBQ 11/07/16 09:00 12/07/16 08:59 11/10/16 09:11 Insulin Aspart BEFORE MEALS AND HS SUBQ 11/07/16 22:00 12/07/16 21:59 11/10/16 05:47 Morphine Sulfate (Morphine Sulfate) 2 mg Q4H PRN IVP severe Pain (Pain Scale 7-10) 11/07/16 07:30 11/14/16 07:29 11/09/16 09:43 Nitroglycerin (Ntg) 0.4 mg Q5M X 3 DOSES PRN SL Prn Chest Pain 11/07/16 07:30 12/07/16 07:29 Ondansetron HCl (Zofran) 4 mg Q6H PRN IVP Nausea & Vomiting 11/07/16 07:30 12/07/16 07:29 11/08/16 19:17 Piperacillin Sod/ Tazobactam Sod/ Sodium Chloride (Zosyn/Sodium Chloride) 110 ml @ 27.5 mls/hr Q8HR IVPB 11/07/16 09:00 11/14/16 08:59 11/10/16 05:45 Polyethylene Glycol (Miralax) 17 gm HSPRN PRN ORAL Constipation 11/07/16 07:30 12/07/16 07:29 Temazepam (Restoril) 15 mg HSPRN PRN ORAL Insomnia 11/07/16 07:30 11/14/16 07:29 Sarah Dee NP (Vanchtein) Nov 10, 2016 13:32
[2016-11-10] MEDS: D5 1/2NS w/KCl 20mEq 1,000 ML IV SCH (14:11)
--- NOTE | 2016-11-10 18:28 | Procedure Note ---
DATE OF PROCEDURE: 11/09/2016 SURGEON: Eliseo Knight M.D. PROCEDURE: Endoscopic retrograde cholangiopancreatography with sphincterotomy and stone removal. ANESTHESIOLOGIST: Ronan Hansen M.D. INSTRUMENT: Olympus adult endoscopic retrograde cholangiopancreatography scope. INDICATIONS: Choledocholithiasis. REASON FOR PROCEDURE: The procedure, risks, benefits, and possible consequences, including hemorrhage, aspiration, perforation and infection, and alternative treatments, were explained to the patient/legal guardian by Dr. Eliseo Knight and the patient/legal guardian understood and accepted these risks. DESCRIPTION OF PROCEDURE: After informed consent was obtained and the patient was adequately sedated, ERCP scope was advanced from mouth and second portion of duodenum. Using a sphincterotome, common bile duct was selectively cannulated. Initial cholangiogram showed a filling defect in the distal common bile duct suggestive of stone. Then over a guidewire, using a sphincterotome, 95% sphincterotomy was performed. Then, a balloon was used to sweep the duct multiple times and small stone was removed from the distal common bile duct. Post stone removal, balloon occlusion cholangiogram, which showed no further filling defect in the common bile duct. The patient tolerated the procedure well without any complications. SUMMARY OF FINDINGS: Choledocholithiasis, status post endoscopic retrograde cholangiopancreatography sphincterotomy and stone removal. RECOMMENDATIONS: Follow labs. Follow up with the patient tomorrow. The patient surgeon for either as inpatient or outpatient cholecystectomy. I want to thank, Dr. Barillas, for this kind referral. Eliseo Knight M.D. DR: PAGE JOB#: [id number] CC: Ross Barillas M.D.; Fax#: [phone]
[2016-11-10] MEDS ORDERED: D5 1/2NS 1000ml IV ONE (20:52)
[2016-11-10] MEDS ORDERED: Tubing IV Secondary IV ONE (20:52)
[2016-11-11] VITALS: BP 88/54
[2016-11-11] MEDS: D5 1/2NS w/KCl 20mEq 1,000 ML IV SCH ×2 (02:00→15:20)
[2016-11-11 04:00] VITALS: BP 100/68
[2016-11-11] MEDS: Piperacillin/Tazobactam 3.375 GM in NS 110 ML IVPB SCH ×3 (06:07→21:08)
[2016-11-11] MEDS: NovoLOG Insulin Flexpen SUBQ SCH ×4 (06:12→21:00)
[2016-11-11 07:12] LABS: BASOPHILS % (AUTO) 0.4 % (0.0-2.0); EOSINOPHILS % (AUTO) 1.2 % (0.0-3.0); LYMPHOCYTES % (AUTO) 19.3 % (20.0-45.0); MEAN CORPUSCULAR HEMOGLOBIN 29.8 PG (27.0-31.0); MEAN CORPUSCULAR HGB CONC 33.3 G/DL (32.0-36.0); MEAN CORPUSCULAR VOLUME 90 FL (80-99); MEAN PLATELET VOLUME 6.8 FL (6.5-10.1); MONOCYTES % (AUTO) 8.5 % (1.0-10.0); NEUTROPHILS % (AUTO) 70.6 % (45.0-75.0); PLATELET COUNT 292 K/UL (150-450); RED BLOOD COUNT 3.71 M/UL (4.20-5.40); RED CELL DISTRIBUTION WIDTH 12.8 % (11.6-14.8); WHITE BLOOD COUNT 9.6 K/UL (4.8-10.8)
[2016-11-11 07:15] LABS: ALANINE AMINOTRANSFERASE 44 U/L (3-33); ALBUMIN/GLOBULIN RATIO 0.7 (1.0-2.7); AMYLASE 45 U/L (10-110); ANION GAP 12 (5-15); ASPARTATE AMINO TRANSFERASE 33 U/L (5-40); CALCIUM 8.4 mg/dL (8.6-10.2); CARBON DIOXIDE 26 mEQ/L (20-30); CHLORIDE 99 mEQ/L (98-107); CREATININE 0.8 mg/dL (0.5-0.9); GLOMERULAR FILTRATION RATE > 60 mL/min (>60); HEMOLYSIS 3; LIPASE 41 U/L (< 60); POTASSIUM 3.3 mEQ/L (3.4-4.9); SODIUM 137 mEQ/L (135-145); TOTAL PROTEIN 6.4 g/dL (6.6-8.7)
--- NOTE | 2016-11-11 07:58 | General Progress Note ---
Assessment/Plan Problem List: (1) Cholelithiases ICD Codes: K80.20 - Calculus of gallbladder without cholecystitis without obstruction SNOMED: 995910136 (2) Diabetes mellitus ICD Codes: E11.9 - Type 2 diabetes mellitus without complications SNOMED: 21561473 (3) Choledocholithiasis ICD Codes: K80.50 - Calculus of bile duct without cholangitis or cholecystitis without obstruction SNOMED: 244559015 Assessment/Plan s/p ercp advance diet repeat labs surg consult Subjective ROS Limited/Unobtainable: Yes Allergies: Coded Allergies: No Known Allergies (Unverified , 02/25/15) Subjective feeling much better Objective Last 24 Hour Vital Signs Date Time Temp Pulse Resp B/P Pulse Ox O2 Delivery O2 Flow Rate FiO2 11/11/16 04:00 98.2 72 20 100/68 98 Room Air 11/11/16 00:00 97.7 54 20 88/54 100 Room Air 11/10/16 20:00 98.8 79 20 98/54 96 Room Air 11/10/16 17:30 99.2 11/10/16 16:12 100.8 72 16 115/68 97 Room Air 11/10/16 11:15 98.1 78 15 99/60 99 Room Air Intake and Output 11/10/16 11/11/16 19:00 07:00 Intake Total 2010.0 ml 635.0 ml Balance 2010.0 ml 635.0 ml Intake Oral 1900 ml IV Total 110.0 ml 635.0 ml # Voids 4 3 Laboratory Tests 11/11/16 05:20: White Blood Count 9.6, Red Blood Count 3.71L, Hemoglobin 11.1L, Hematocrit 33.2L , Mean Corpuscular Volume 90, Mean Corpuscular Hemoglobin 29.8, Mean Corpuscular Hemoglobin Concent 33.3, Red Cell Distribution Width 12.8, Platelet Count 292, Mean Platelet Volume 6.8, Neutrophils (%) (Auto) 70.6, Lymphocytes (% ) (Auto) 19.3L, Monocytes (%) (Auto) 8.5, Eosinophils (%) (Auto) 1.2, Basophils (%) (Auto) 0.4, Sodium Level 137, Potassium Level 3.3L, Chloride Level 99, Carbon Dioxide Level 26, Anion Gap 12, Blood Urea Nitrogen 8, Creatinine 0.8, Estimat Glomerular Filtration Rate > 60, Glucose Level 175H, Calcium Level 8.4L , Total Bilirubin 1.0, Aspartate Amino Transf (AST/SGOT) 33, Alanine Aminotransferase (ALT/SGPT) 44H, Alkaline Phosphatase 268H, Total Protein 6.4L, Albumin 2.8L, Globulin 3.6, Albumin/Globulin Ratio 0.7L, Amylase Level 45, Lipase 41 Height (Feet): 4 Height (Inches): 4.00 Weight (Pounds): 169 General Appearance: alert EENT: normal ENT inspection Neck: supple Cardiovascular: normal rate Respiratory/Chest: lungs clear Abdomen: normal bowel sounds, non tender, soft Extremities: non-tender DEACON JOHNSON Nov 11, 2016 07:58
[2016-11-11 08:00] VITALS: BP 114/69
[2016-11-11] MEDS: Heparin 5000 units/ml inj SUBQ SCH ×2 (08:58→21:00)
--- NOTE | 2016-11-11 11:02 | Infectious Diseases Prog Note ---
Assessment/Plan Assessment/Plan ASSESSMENT: 61 y/o female with: // E.cloacae bacteremia, m/l biliary source - repeat BCx pending // Recurrent gallstone cholangitis / choledocholithiasis - plan lap cholecystectomy, possible cholangiogram, possible open per surgery. - SP ERCP 11/09 - elevated LFTs - CT A/P: Cholelithiasis. Punctate calcification in the distal common bile duct with mild biliary ductal dilatation, consistent with choledocholithiasis possible biliary obstruction // Sepsis SP // Leukocytosis - resolved // Fever - resolved // DM // Obesity // NKDA // Full Code PLAN: - continue empiric zosyn d# - Needs lap cholecystectomy, possible cholangiogram, possible open per surgery - f/u cultures - monitor CBC, temperatures - monitor CMP Subjective Allergies: Coded Allergies: No Known Allergies (Unverified , 02/25/15) Subjective fevers, WBC resolved BCx E.cloacae plan surgery Objective Vital Signs Last 24 Hour Vital Signs Date Time Temp Pulse Resp B/P Pulse Ox O2 Delivery O2 Flow Rate FiO2 11/11/16 08:00 98.1 71 20 114/69 99 Room Air 11/11/16 04:00 98.2 72 20 100/68 98 Room Air 11/11/16 00:00 97.7 54 20 88/54 100 Room Air 11/10/16 20:00 98.8 79 20 98/54 96 Room Air 11/10/16 17:30 99.2 11/10/16 16:12 100.8 72 16 115/68 97 Room Air 11/10/16 11:15 98.1 78 15 99/60 99 Room Air Height (Feet): 4 Height (Inches): 4.00 Weight (Pounds): 169 General Appearance: no acute distress Cardiovascular: normal rate, regular rhythm Abdomen: normal bowel sounds, soft, non tender, non distended Microbiology Date/Time Source Procedure Growth Status 11/08/16 19:16 Blood Blood Culture - Final Enterobacter Cloacae Complex Complete 11/08/16 19:06 Blood Blood Culture - Preliminary NO GROWTH AFTER 48 HOURS Resulted Laboratory Tests Test 11/11/16 05:20 White Blood Count 9.6 K/UL (4.8-10.8) Red Blood Count 3.71 M/UL (4.20-5.40) L Hemoglobin 11.1 G/DL (12.0-16.0) L Hematocrit 33.2 % (37.0-47.0) L Mean Corpuscular Volume 90 FL (80-99) Mean Corpuscular Hemoglobin 29.8 PG (27.0-31.0) Mean Corpuscular Hemoglobin Concent 33.3 G/DL (32.0-36.0) Red Cell Distribution Width 12.8 % (11.6-14.8) Platelet Count 292 K/UL (150-450) Mean Platelet Volume 6.8 FL (6.5-10.1) Neutrophils (%) (Auto) 70.6 % (45.0-75.0) Lymphocytes (%) (Auto) 19.3 % (20.0-45.0) L Monocytes (%) (Auto) 8.5 % (1.0-10.0) Eosinophils (%) (Auto) 1.2 % (0.0-3.0) Basophils (%) (Auto) 0.4 % (0.0-2.0) Sodium Level 137 mEQ/L (135-145) Potassium Level 3.3 mEQ/L (3.4-4.9) L Chloride Level 99 mEQ/L (98-107) Carbon Dioxide Level 26 mEQ/L (20-30) Anion Gap 12 (5-15) Blood Urea Nitrogen 8 mg/dL (7-23) Creatinine 0.8 mg/dL (0.5-0.9) Estimat Glomerular Filtration Rate > 60 mL/min (>60) Glucose Level 175 mg/dL (74-106) H Calcium Level 8.4 mg/dL (8.6-10.2) L Total Bilirubin 1.0 mg/dL (0.0-1.2) Aspartate Amino Transf (AST/SGOT) 33 U/L (5-40) Alanine Aminotransferase (ALT/SGPT) 44 U/L (3-33) H Alkaline Phosphatase 268 U/L (35-104) H Total Protein 6.4 g/dL (6.6-8.7) L Albumin 2.8 g/dL (3.5-5.2) L Globulin 3.6 g/dL Albumin/Globulin Ratio 0.7 (1.0-2.7) L Amylase Level 45 U/L (10-110) Lipase 41 U/L (< 60) Current Medications Medications (Trade) Dose Ordered Sig/Zhao Route PRN Reason Start Time Stop Time Status Last Admin Dose Admin Acetaminophen (Tylenol) 650 mg Q4H PRN ORAL fever 11/07/16 07:30 12/07/16 07:29 11/10/16 16:31 Al Hydroxide/Mg Hydroxide (Mylanta II) 30 ml Q6H PRN ORAL dyspepsia 11/07/16 07:30 12/07/16 07:29 11/09/16 20:28 Dextrose STAT PRN IV Hypoglycemia 11/07/16 07:30 12/07/16 07:29 Dextrose/ Electrolytes (D5 0.45%NS W/ KCl 20mEq) 1,000 ml @ 75 mls/hr [id number] IV 11/09/16 10:00 12/09/16 09:59 11/10/16 14:11 Diphenhydramine HCl (Benadryl) 25 mg Q6H PRN ORAL Itching/Pruritis 11/07/16 07:30 12/07/16 07:29 Heparin Sodium (Porcine) (Heparin 5000 units/ml) 5,000 units EVERY 12 HOURS SUBQ 11/07/16 09:00 12/07/16 08:59 11/11/16 08:58 Insulin Aspart BEFORE MEALS AND HS SUBQ 11/07/16 22:00 12/07/16 21:59 11/10/16 16:32 Morphine Sulfate (Morphine Sulfate) 2 mg Q4H PRN IVP severe Pain (Pain Scale 7-10) 11/07/16 07:30 11/14/16 07:29 11/09/16 09:43 Nitroglycerin (Ntg) 0.4 mg Q5M X 3 DOSES PRN SL Prn Chest Pain 11/07/16 07:30 12/07/16 07:29 Ondansetron HCl (Zofran) 4 mg Q6H PRN IVP Nausea & Vomiting 11/07/16 07:30 12/07/16 07:29 11/10/16 16:31 Piperacillin Sod/ Tazobactam Sod/ Sodium Chloride (Zosyn/Sodium Chloride) 110 ml @ 27.5 mls/hr Q8HR IVPB 11/07/16 09:00 11/20/16 08:59 11/11/16 06:07 Polyethylene Glycol (Miralax) 17 gm HSPRN PRN ORAL Constipation 11/07/16 07:30 12/07/16 07:29 Temazepam (Restoril) 15 mg HSPRN PRN ORAL Insomnia 11/07/16 07:30 11/14/16 07:29 MICHAELA PLUNKETT Nov 11, 2016 11:02
[2016-11-11 12:00] VITALS: BP 112/67
--- NOTE | 2016-11-11 12:13 | General Progress Note ---
Progress Note Progress Note Afebrile, no further pain, shirlene liquids. No BM. Abdomen: soft, non tender, BS normal, no mass. WBC normal Tot. Bili 1.0, LFT's all normalizing. Impression: resolving gallstone pancreatitis, s/p ERCP, cholelithiasis, poss. mild cholecystitis. Plan: all set for lap adilene , poss cholangiogram, poss open in am by Dr. Jett or myself. Spoke with pt and her about indications , risks , benefits, possible complications, etc. and they consent. RICKY BARRY Nov 11, 2016 12:13
--- NOTE | 2016-11-11 13:11 | Pulmonology Progress Note ---
Assessment/Plan Assessment/Plan ASSESSMENT gallstone pancreatitis cholelithiasis possible cholecystitis recurrent biliary colic sepsis with bacteremia hx of HTN DM s/p ERCP, sphincterectomy 11/09 PLAN OF CARE MS floor abx, blood cx + Enterobacter ID follows GI follows IVF s/p ERCP with sphincterectomy 11/09 CT A/P c/w cholelithiasis surgery follows per surgery: resolving gallstone pancreatitis, s/p ERCP, cholelithiasis, poss. mild cholecystitis. Plan: lap adilene , poss cholangiogram, poss open in am a/emetic prn replace K no anti HTN meds for now BS management wit SS of insulin DVT prophylaxis case discussed and evaluated by supervising physician Subjective Allergies: Coded Allergies: No Known Allergies (Unverified , 02/25/15) Subjective leukocytosis resolved afebrile bili stable ALT trending up surge follwso s/p ERCP 11/09 K-3.3 Objective Last 24 Hour Vital Signs Date Time Temp Pulse Resp B/P Pulse Ox O2 Delivery O2 Flow Rate FiO2 11/11/16 08:00 98.1 71 20 114/69 99 Room Air 11/11/16 04:00 98.2 72 20 100/68 98 Room Air 11/11/16 00:00 97.7 54 20 88/54 100 Room Air 11/10/16 20:00 98.8 79 20 98/54 96 Room Air 11/10/16 17:30 99.2 11/10/16 16:12 100.8 72 16 115/68 97 Room Air Intake and Output 11/10/16 11/11/16 19:00 07:00 Intake Total 2010.0 ml 635.0 ml Balance 2010.0 ml 635.0 ml Intake Oral 1900 ml IV Total 110.0 ml 635.0 ml # Voids 4 3 Objective General Appearance: no acute distress, other - obese female HEENT: normocephalic, atraumatic, anicteric Respiratory/Chest: chest wall non-tender, lungs clear, no accessory muscle use Cardiovascular: normal peripheral pulses, normal rate, no JVD Abdomen: normal bowel sounds , nontender, no rebound, no guarding, Neurologic/Psychiatric: labor standards director II-XII grossly normal, no motor/sensory deficits, alert, oriented x 3, responsive Musculoskeletal: normal muscle bulk Microbiology Date/Time Source Procedure Growth Status 11/08/16 19:16 Blood Blood Culture - Final Enterobacter Cloacae Complex Complete 11/08/16 19:06 Blood Blood Culture - Preliminary NO GROWTH AFTER 48 HOURS Resulted Laboratory Tests 11/11/16 05:20: White Blood Count 9.6, Red Blood Count 3.71L, Hemoglobin 11.1L, Hematocrit 33.2L , Mean Corpuscular Volume 90, Mean Corpuscular Hemoglobin 29.8, Mean Corpuscular Hemoglobin Concent 33.3, Red Cell Distribution Width 12.8, Platelet Count 292, Mean Platelet Volume 6.8, Neutrophils (%) (Auto) 70.6, Lymphocytes (% ) (Auto) 19.3L, Monocytes (%) (Auto) 8.5, Eosinophils (%) (Auto) 1.2, Basophils (%) (Auto) 0.4, Sodium Level 137, Potassium Level 3.3L, Chloride Level 99, Carbon Dioxide Level 26, Anion Gap 12, Blood Urea Nitrogen 8, Creatinine 0.8, Estimat Glomerular Filtration Rate > 60, Glucose Level 175H, Calcium Level 8.4L , Total Bilirubin 1.0, Aspartate Amino Transf (AST/SGOT) 33, Alanine Aminotransferase (ALT/SGPT) 44H, Alkaline Phosphatase 268H, Total Protein 6.4L, Albumin 2.8L, Globulin 3.6, Albumin/Globulin Ratio 0.7L, Amylase Level 45, Lipase 41 Current Medications Medications (Trade) Dose Ordered Sig/Zhao Route PRN Reason Start Time Stop Time Status Last Admin Dose Admin Acetaminophen (Tylenol) 650 mg Q4H PRN ORAL fever 11/07/16 07:30 12/07/16 07:29 11/10/16 16:31 Al Hydroxide/Mg Hydroxide (Mylanta II) 30 ml Q6H PRN ORAL dyspepsia 11/07/16 07:30 12/07/16 07:29 11/09/16 20:28 Dextrose STAT PRN IV Hypoglycemia 11/07/16 07:30 12/07/16 07:29 Dextrose/ Electrolytes (D5 0.45%NS W/ KCl 20mEq) 1,000 ml @ 75 mls/hr [id number] IV 11/09/16 10:00 12/09/16 09:59 11/10/16 14:11 Diphenhydramine HCl (Benadryl) 25 mg Q6H PRN ORAL Itching/Pruritis 11/07/16 07:30 12/07/16 07:29 Heparin Sodium (Porcine) (Heparin 5000 units/ml) 5,000 units EVERY 12 HOURS SUBQ 11/07/16 09:00 12/07/16 08:59 11/11/16 08:58 Insulin Aspart BEFORE MEALS AND HS SUBQ 11/07/16 22:00 12/07/16 21:59 11/11/16 12:27 Morphine Sulfate (Morphine Sulfate) 2 mg Q4H PRN IVP severe Pain (Pain Scale 7-10) 11/07/16 07:30 11/14/16 07:29 11/09/16 09:43 Nitroglycerin (Ntg) 0.4 mg Q5M X 3 DOSES PRN SL Prn Chest Pain 11/07/16 07:30 12/07/16 07:29 Ondansetron HCl (Zofran) 4 mg Q6H PRN IVP Nausea & Vomiting 11/07/16 07:30 12/07/16 07:29 11/10/16 16:31 Piperacillin Sod/ Tazobactam Sod/ Sodium Chloride (Zosyn/Sodium Chloride) 110 ml @ 27.5 mls/hr Q8HR IVPB 11/07/16 09:00 11/20/16 08:59 11/11/16 06:07 Polyethylene Glycol (Miralax) 17 gm HSPRN PRN ORAL Constipation 11/07/16 07:30 12/07/16 07:29 Temazepam (Restoril) 15 mg HSPRN PRN ORAL Insomnia 11/07/16 07:30 11/14/16 07:29 [facility] HospitalSarah Sheppard NP Nov 11, 2016 13:11
[2016-11-11 16:29] VITALS: BP 109/68
[2016-11-11 20:00] VITALS: BP 141/60
[2016-11-12] VITALS (11 sets, daily range): BP systolic 94–139; BP diastolic 54–74
[2016-11-12] MEDS: D5 1/2NS w/KCl 20mEq 1,000 ML IV SCH ×3 (04:40→17:34)
[2016-11-12] MEDS: Piperacillin/Tazobactam 3.375 GM in NS 110 ML IVPB SCH ×3 (06:02→21:00)
[2016-11-12] MEDS: NovoLOG Insulin Flexpen SUBQ SCH ×4 (06:03→21:02)
[2016-11-12 07:10] LABS: EOSINOPHILS % (AUTO) 1.1 % (0.0-3.0); LYMPHOCYTES % (AUTO) 24.5 % (20.0-45.0); MEAN CORPUSCULAR HEMOGLOBIN 29.9 PG (27.0-31.0); MEAN CORPUSCULAR HGB CONC 32.7 G/DL (32.0-36.0); MEAN CORPUSCULAR VOLUME 92 FL (80-99); MEAN PLATELET VOLUME 6.4 FL (6.5-10.1); MONOCYTES % (AUTO) 9.4 % (1.0-10.0); NEUTROPHILS % (AUTO) 64.1 % (45.0-75.0); PLATELET COUNT 336 K/UL (150-450); RED BLOOD COUNT 4.05 M/UL (4.20-5.40); RED CELL DISTRIBUTION WIDTH 13.1 % (11.6-14.8); WHITE BLOOD COUNT 9.7 K/UL (4.8-10.8)
[2016-11-12] MEDS ORDERED: Bupivacaine w/Epi 0.25% 30ml Vial INJ ONE (07:22)
[2016-11-12] MEDS ORDERED: Iothalamate Meglumine 60% 30ML INJ ONE (07:22)
[2016-11-12 07:26] LABS: ALANINE AMINOTRANSFERASE 43 U/L (3-33); ALBUMIN/GLOBULIN RATIO 0.8 (1.0-2.7); ANION GAP 15 (5-15); ASPARTATE AMINO TRANSFERASE 29 U/L (5-40); CALCIUM 9.4 mg/dL (8.6-10.2); CARBON DIOXIDE 26 mEQ/L (20-30); CHLORIDE 98 mEQ/L (98-107); CREATININE 0.9 mg/dL (0.5-0.9); GLOMERULAR FILTRATION RATE > 60 mL/min (>60); HEMOLYSIS 5; POTASSIUM 4.3 mEQ/L (3.4-4.9); SODIUM 139 mEQ/L (135-145); TOTAL PROTEIN 7.3 g/dL (6.6-8.7)
--- NOTE | 2016-11-12 07:30 | Pre-Procedure Note/Attestation ---
Pre-Procedure Note/Attestation Complete Prior to Procedure Planned Procedure: not applicable Procedure Narrative: laparoscopic cholecystectomy possible open possible intraoperative cholangiogram Indications for Procedure Pre-Operative Diagnosis: gallstone pancreatitis Attestation I attest that I discussed the nature of the procedure; its benefits; risks and complications; and alternatives (and the risks and benefits of such alternatives ), prior to the procedure, with the patient (or the patient's legal public utilities sales representative). I attest that, if there was a reasonable possibility of needing a blood transfusion, the patient (or the patient's legal public utilities sales representative) was given the [facility] standardized written summary, pursuant to the Augie Jaime Blood Safety Act ([place] Health and Safety Code # 1645, as amended). I attest that I re-evaluated the patient just prior to the surgery and that there has been no change in the patient's H&P, except as documented below: Hamlet Jett Nov 12, 2016 07:30
--- NOTE | 2016-11-12 07:31 | General Progress Note ---
Progress Note Progress Note Surgery: Patient seen and examined at bedside. States she is doing well and ready for surgery. denies pain. no n/v/f/c. Understands risks, benefits, and alternatives to surgery. discussed lap vs open with possible ioc with patient. All questions answered. Consent in chart. Plan for OR today. Hamlet Jett Nov 12, 2016 07:31
[2016-11-12] MEDS ORDERED: fentaNYL 100 mcg/2 mL IV ONE (08:00)
[2016-11-12] MEDS ORDERED: Midazolam 2mg/2ml Inj ONE (08:00)
[2016-11-12] MEDS ORDERED: Neostigmine 1mg/ml 10ml Inj ONE (08:00)
[2016-11-12] MEDS ORDERED: Ketorolac 30mg Inj ONE (08:00)
[2016-11-12] MEDS ORDERED: LR 1000ml ONE (08:00)
[2016-11-12] MEDS ORDERED: Sterile Water Irrig 1000ml IRRIG ONE (08:00)
[2016-11-12] MEDS ORDERED: Glycopyrrolate 0.2mg/ml 1ml Vial ONE (08:00)
[2016-11-12] MEDS ORDERED: Propofol 10mg/ml 20ml IV ONE (08:00)
[2016-11-12] MEDS ORDERED: Succinylcholine 20mg/ml 10ml vial ONE (08:00)
[2016-11-12] MEDS ORDERED: NS Irrig 1000ml ONE (08:00)
[2016-11-12] MEDS ORDERED: Zemuron 50mg/5ml Inj IV ONE (08:00)
[2016-11-12] MEDS ORDERED: NS Irrig 1000ml IRRIG ONE (08:35)
--- NOTE | 2016-11-12 08:55 | General Progress Note ---
Assessment/Plan Problem List: (1) Cholelithiases ICD Codes: K80.20 - Calculus of gallbladder without cholecystitis without obstruction SNOMED: 691088043 (2) Diabetes mellitus ICD Codes: E11.9 - Type 2 diabetes mellitus without complications SNOMED: 14933136 (3) Choledocholithiasis ICD Codes: K80.50 - Calculus of bile duct without cholangitis or cholecystitis without obstruction SNOMED: 390275770 Assessment/Plan s/p ercp repeat labs surg pend today Subjective ROS Limited/Unobtainable: Yes Allergies: Coded Allergies: No Known Allergies (Unverified , 02/25/15) Subjective feeling much better Objective Last 24 Hour Vital Signs Date Time Temp Pulse Resp B/P Pulse Ox O2 Delivery O2 Flow Rate FiO2 11/12/16 04:00 98.1 74 20 94/57 97 Room Air 11/12/16 00:00 97.8 83 20 138/74 98 Room Air 11/11/16 20:00 97.7 78 20 141/60 95 Room Air 11/11/16 16:29 98.4 77 15 109/68 97 Room Air 11/11/16 12:00 99.0 80 20 112/67 95 Room Air Intake and Output 11/11/16 11/12/16 19:00 07:00 Intake Total 1782.5 ml 612.5 ml Balance 1782.5 ml 612.5 ml Intake Oral 1700 ml IV Total 82.5 ml 612.5 ml # Voids 6 4 # Bowel Movements 1 1 Laboratory Tests 11/12/16 06:15: White Blood Count 9.7, Red Blood Count 4.05L, Hemoglobin 12.1, Hematocrit 37.1, Mean Corpuscular Volume 92, Mean Corpuscular Hemoglobin 29.9, Mean Corpuscular Hemoglobin Concent 32.7, Red Cell Distribution Width 13.1, Platelet Count 336, Mean Platelet Volume 6.4L, Neutrophils (%) (Auto) 64.1, Lymphocytes (%) (Auto) 24.5, Monocytes (%) (Auto) 9.4, Eosinophils (%) (Auto) 1.1, Basophils (%) (Auto ) 1.0, Sodium Level 139, Potassium Level 4.3, Chloride Level 98, Carbon Dioxide Level 26, Anion Gap 15, Blood Urea Nitrogen 7, Creatinine 0.9, Estimat Glomerular Filtration Rate > 60, Glucose Level 131H, Calcium Level 9.4, Total Bilirubin 0.9, Aspartate Amino Transf (AST/SGOT) 29, Alanine Aminotransferase ( ALT/SGPT) 43H, Alkaline Phosphatase 280H, Total Protein 7.3, Albumin 3.3L, Globulin 4.0, Albumin/Globulin Ratio 0.8L Height (Feet): 4 Height (Inches): 4.00 Weight (Pounds): 169 General Appearance: alert EENT: normal ENT inspection Neck: supple Cardiovascular: normal rate Respiratory/Chest: decreased breath sounds Abdomen: normal bowel sounds, non tender, soft Extremities: non-tender DEACON JOHNSON Nov 12, 2016 08:55
[2016-11-12] MEDS ORDERED: LR 1000ml 1,000 ML IVLG SCH (08:59)
--- NOTE | 2016-11-12 08:59 | Anethesia Preoperative Eval ---
Anesthesia Pre-op PMH/ROS General Date of Evaluation: Nov 12, 2016 Time of Evaluation: 07:50 Anesthesiologist: Kb ASA Score: ASA 2 Mallampati Score Class I : Soft palate, uvula, fauces, pillars visible Class II: Soft palate, uvula, fauces visible Class III: Soft palate, base of uvula visible Class IV: Only hard plate visible Mallampati Classification: Class II Surgeon: Franklin Diagnosis: Symptomatic cholelitiasis Surgical Procedure: Laparoscopic cholecystectomy Anesthesia History: none Family History: no anesthesia problems Allergies: Coded Allergies: No Known Allergies (Unverified , 02/25/15) Medications: see eMAR Past Medical History Cardiovascular: Reports: HTN, Denies: CAD, CA, arrhythmia, other, valve dz Pulmonary: Reports: MICHEL, Denies: COPD, asthma, other Gastrointestinal/Genitourinary: Reports: GERD, other - Gall bladder stones, Denies: CRI, ESRD Neurologic/Psychiatric: Denies: CVA, TIA, dementia, depression/anxiety, other Endocrine: Reports: DM, Denies: hypothyroidism, other, steroids HEENT: Denies: [place] (L), [place] (R), cataract (L), cataract (R), glaucoma, other Hematology/Immune: Denies: DVT, anemia, bleeding disorder, other Musculoskeletal/Integumentary: Reports: DDD, DJD, OA, RA, edema, other Other: obesity PMH Narrative: Admuitted for acute abdominal pain nausea vomiting, Cholelithiasis, ERCP done CBD stone removed PSxH Narrative: Anesthesia Pre-op Phys. Exam Physician Exam Last Vital Signs Date Time Temp Pulse Resp B/P Pulse Ox O2 Delivery O2 Flow Rate FiO2 11/12/16 04:00 98.1 74 20 94/57 97 Room Air 11/09/16 14:42 3.0 Constitutional: NAD Neurologic: CN 2-12 intact Cardiovascular: RRR, no M/R/G Respiratory: CTA Gastrointestinal: other - obesity Airway Exam Mallampati Score: Class II MO: full Neck: short ROM: limited Teeth: missing Dentures: lower, upper Anesthesia Pre-op A/P Labs Hematology Test 11/12/16 06:15 White Blood Count 9.7 K/UL (4.8-10.8) Red Blood Count 4.05 M/UL (4.20-5.40) L Hemoglobin 12.1 G/DL (12.0-16.0) Hematocrit 37.1 % (37.0-47.0) Mean Corpuscular Volume 92 FL (80-99) Mean Corpuscular Hemoglobin 29.9 PG (27.0-31.0) Mean Corpuscular Hemoglobin Concent 32.7 G/DL (32.0-36.0) Red Cell Distribution Width 13.1 % (11.6-14.8) Platelet Count 336 K/UL (150-450) Mean Platelet Volume 6.4 FL (6.5-10.1) L Neutrophils (%) (Auto) 64.1 % (45.0-75.0) Lymphocytes (%) (Auto) 24.5 % (20.0-45.0) Monocytes (%) (Auto) 9.4 % (1.0-10.0) Eosinophils (%) (Auto) 1.1 % (0.0-3.0) Basophils (%) (Auto) 1.0 % (0.0-2.0) Chemistry Test 11/12/16 06:15 Sodium Level 139 mEQ/L (135-145) Potassium Level 4.3 mEQ/L (3.4-4.9) Chloride Level 98 mEQ/L (98-107) Carbon Dioxide Level 26 mEQ/L (20-30) Anion Gap 15 (5-15) Blood Urea Nitrogen 7 mg/dL (7-23) Creatinine 0.9 mg/dL (0.5-0.9) Estimat Glomerular Filtration Rate > 60 mL/min (>60) Glucose Level 131 mg/dL (74-106) H Calcium Level 9.4 mg/dL (8.6-10.2) Total Bilirubin 0.9 mg/dL (0.0-1.2) Aspartate Amino Transf (AST/SGOT) 29 U/L (5-40) Alanine Aminotransferase (ALT/SGPT) 43 U/L (3-33) H Alkaline Phosphatase 280 U/L (35-104) H Total Protein 7.3 g/dL (6.6-8.7) Albumin 3.3 g/dL (3.5-5.2) L Globulin 4.0 g/dL Albumin/Globulin Ratio 0.8 (1.0-2.7) L Studies Pre-op Studies: EKG - NSR Risk Assessment & Plan Assessment: ASA 2 Plan: GA with ETT Status Change Before Surgery: No Pre-Antibiotics Drug: Zosin Given Within 1 Hr of Incision: No Time Given: 06:50 CANDICE BARBER M.D. Nov 12, 2016 08:59
[2016-11-12] MEDS ORDERED: Metoclopramide 10mg/2ml Inj IVP PRN (09:00)
[2016-11-12] MEDS: Heparin 5000 units/ml inj SUBQ SCH ×2 (09:00→21:02)
[2016-11-12] MEDS ORDERED: Hydromorphone 0.5mg/0.5ml inj IVP PRN (09:00)
[2016-11-12] MEDS ORDERED: fentaNYL 100 mcg/2 mL IV PRN (09:00)
[2016-11-12] MEDS ORDERED: DiphenhydrAMINE 50mg/ml Inj IVP PRN (09:00)
[2016-11-12] MEDS ORDERED: Midazolam 2mg/2ml Inj IVP PRN (09:00)
[2016-11-12] MEDS ORDERED: Surgicel 4in x 8in TOPIC ONE (09:34)
--- NOTE | 2016-11-12 10:03 | Infectious Diseases Prog Note ---
Assessment/Plan Assessment/Plan ASSESSMENT: 61 y/o female with: // E.cloacae bacteremia, m/l biliary source - repeat BCx NGTD // Recurrent gallstone cholangitis / choledocholithiasis - surgery today - SP ERCP 11/09 - elevated LFTs - CT A/P: Cholelithiasis. Punctate calcification in the distal common bile duct with mild biliary ductal dilatation, consistent with choledocholithiasis possible biliary obstruction // Sepsis SP // Leukocytosis - resolved // Fever - resolved // DM // Obesity // NKDA // Full Code PLAN: - continue empiric zosyn d# - lap cholecystectomy, possible cholangiogram, possible open per surgery today - f/u cultures - monitor CBC, temperatures - monitor CMP Subjective Allergies: Coded Allergies: No Known Allergies (Unverified , 02/25/15) Subjective fevers, WBC resolved repeat BCx NGTD surgery today Objective Vital Signs Last 24 Hour Vital Signs Date Time Temp Pulse Resp B/P Pulse Ox O2 Delivery O2 Flow Rate FiO2 11/12/16 04:00 98.1 74 20 94/57 97 Room Air 11/12/16 00:00 97.8 83 20 138/74 98 Room Air 11/11/16 20:00 97.7 78 20 141/60 95 Room Air 11/11/16 16:29 98.4 77 15 109/68 97 Room Air 11/11/16 12:00 99.0 80 20 112/67 95 Room Air Height (Feet): 4 Height (Inches): 4.00 Weight (Pounds): 169 General Appearance: no acute distress Respiratory/Chest: no respiratory distress Cardiovascular: normal rate, regular rhythm Abdomen: non distended Microbiology Date/Time Source Procedure Growth Status 11/10/16 11:45 Blood Blood Culture - Preliminary NO GROWTH AFTER 24 HOURS Resulted 11/10/16 11:30 Blood Blood Culture - Preliminary NO GROWTH AFTER 24 HOURS Resulted Laboratory Tests Test 11/12/16 06:15 White Blood Count 9.7 K/UL (4.8-10.8) Red Blood Count 4.05 M/UL (4.20-5.40) L Hemoglobin 12.1 G/DL (12.0-16.0) Hematocrit 37.1 % (37.0-47.0) Mean Corpuscular Volume 92 FL (80-99) Mean Corpuscular Hemoglobin 29.9 PG (27.0-31.0) Mean Corpuscular Hemoglobin Concent 32.7 G/DL (32.0-36.0) Red Cell Distribution Width 13.1 % (11.6-14.8) Platelet Count 336 K/UL (150-450) Mean Platelet Volume 6.4 FL (6.5-10.1) L Neutrophils (%) (Auto) 64.1 % (45.0-75.0) Lymphocytes (%) (Auto) 24.5 % (20.0-45.0) Monocytes (%) (Auto) 9.4 % (1.0-10.0) Eosinophils (%) (Auto) 1.1 % (0.0-3.0) Basophils (%) (Auto) 1.0 % (0.0-2.0) Sodium Level 139 mEQ/L (135-145) Potassium Level 4.3 mEQ/L (3.4-4.9) Chloride Level 98 mEQ/L (98-107) Carbon Dioxide Level 26 mEQ/L (20-30) Anion Gap 15 (5-15) Blood Urea Nitrogen 7 mg/dL (7-23) Creatinine 0.9 mg/dL (0.5-0.9) Estimat Glomerular Filtration Rate > 60 mL/min (>60) Glucose Level 131 mg/dL (74-106) H Calcium Level 9.4 mg/dL (8.6-10.2) Total Bilirubin 0.9 mg/dL (0.0-1.2) Aspartate Amino Transf (AST/SGOT) 29 U/L (5-40) Alanine Aminotransferase (ALT/SGPT) 43 U/L (3-33) H Alkaline Phosphatase 280 U/L (35-104) H Total Protein 7.3 g/dL (6.6-8.7) Albumin 3.3 g/dL (3.5-5.2) L Globulin 4.0 g/dL Albumin/Globulin Ratio 0.8 (1.0-2.7) L Current Medications Medications (Trade) Dose Ordered Sig/Zhao Route PRN Reason Start Time Stop Time Status Last Admin Dose Admin Acetaminophen (Tylenol) 650 mg Q4H PRN ORAL fever 11/07/16 07:30 12/07/16 07:29 11/10/16 16:31 Al Hydroxide/Mg Hydroxide (Mylanta II) 30 ml Q6H PRN ORAL dyspepsia 11/07/16 07:30 12/07/16 07:29 11/09/16 20:28 Dextrose STAT PRN IV Hypoglycemia 11/07/16 07:30 12/07/16 07:29 Dextrose/ Electrolytes (D5 0.45%NS W/ KCl 20mEq) 1,000 ml @ 75 mls/hr [id number] IV 11/09/16 10:00 12/09/16 09:59 11/12/16 06:02 Diphenhydramine HCl (Benadryl) 25 mg Q6H PRN ORAL Itching/Pruritis 11/07/16 07:30 12/07/16 07:29 Diphenhydramine HCl 25 mg 25 mg Q15M PRN IVP Itching 11/12/16 09:00 11/12/16 15:00 Fentanyl Citrate (Sublimaze 100 mcg/2 mL) 50 mcg Q10M PRN IV Moderate Pain (Pain Scale 4-6) 11/12/16 09:00 11/12/16 15:00 Heparin Sodium (Porcine) (Heparin 5000 units/ml) 5,000 units EVERY 12 HOURS SUBQ 11/07/16 09:00 12/07/16 08:59 11/11/16 08:58 Hydromorphone HCl (Dilaudid) 0.5 mg Q15M PRN IVP Severe Pain (Pain Scale 7-10) 11/12/16 09:00 11/12/16 15:00 Insulin Aspart BEFORE MEALS AND HS SUBQ 11/07/16 22:00 12/07/16 21:59 11/11/16 12:27 Lactated Ringer's (Lactated Ringer's 1000ml) 1,000 ml @ 10 mls/hr Q24H IVLG 11/12/16 08:59 11/12/16 15:00 Metoclopramide HCl (Reglan) 10 mg Q1H PRN IVP Nausea & Vomiting 11/12/16 09:00 11/12/16 15:00 Midazolam HCl (Versed 2mg/2ml vial) 1 mg Q15M PRN IVP For Anxiety 11/12/16 09:00 11/12/16 15:00 Morphine Sulfate (Morphine Sulfate) 2 mg Q4H PRN IVP severe Pain (Pain Scale 7-10) 11/07/16 07:30 11/14/16 07:29 11/09/16 09:43 Nitroglycerin (Ntg) 0.4 mg Q5M X 3 DOSES PRN SL Prn Chest Pain 11/07/16 07:30 12/07/16 07:29 Ondansetron HCl (Zofran) 4 mg Q6H PRN IVP Nausea & Vomiting 11/07/16 07:30 12/07/16 07:29 11/10/16 16:31 Piperacillin Sod/ Tazobactam Sod/ Sodium Chloride (Zosyn/Sodium Chloride) 110 ml @ 27.5 mls/hr Q8HR IVPB 11/07/16 09:00 11/20/16 08:59 11/12/16 06:02 Polyethylene Glycol (Miralax) 17 gm HSPRN PRN ORAL Constipation 11/07/16 07:30 12/07/16 07:29 Temazepam (Restoril) 15 mg HSPRN PRN ORAL Insomnia 11/07/16 07:30 11/14/16 07:29 MICHAELA PLUNKETT 20, 2017 10:03
--- NOTE | 2016-11-12 10:20 | Brief Operative Note ---
Immediate Post Operative Note Operative Note Pre-op Diagnosis: choledocholithiasis, acute cholecystitis Procedure: lap adilene Post-op Diagnosis: same as pre-op Findings: consistent w/pre-op dx studies Surgeon: bhumika Anesthesiologist: Kb Anesthesia: general Specimen: yes Complications: none Condition: stable Fluids: see records Estimated Blood Loss: minimal Drains: none Implant(s) used?: No Hamlet Jett Nov 12, 2016 10:20
--- NOTE | 2016-11-12 11:39 | Immediate Post-Op Evaluation ---
Immediate Post-Op Evalulation Immediate Post-Op Evalulation Procedure: Laparoscopic cholecystectomy Date of Evaluation: Nov 12, 2016 Time of Evaluation: 10:28 IV Fluids: 1000 Blood Products: none` Estimated Blood Loss: 50 Urinary Output: none Blood Pressure Systolic: 124 Blood Pressure Diastolic: 56 Pulse Rate: 78 Respiratory Rate: 22 O2 Sat by Pulse Oximetry: 99 Temperature (Fahrenheit): 97.5 Pain Score (1-10): 2 Nausea: No Vomiting: No Complications none Patient Status: reacts, patent, extubated, none Hydration Status: adequate CANDICE BARBER M.D. Nov 12, 2016 11:39
[2016-11-12] MEDS ORDERED: Norco 10mg/325mg tab ORAL PRN (12:30)
[2016-11-12] MEDS ORDERED: Norco 5mg/325mg tab ORAL PRN (12:30)
--- NOTE | 2016-11-12 17:03 | Pulmonology Progress Note ---
Assessment/Plan Problems: (1) Cholelithiases (2) HTN (hypertension) (3) Gastritis (4) Diabetes mellitus Assessment/Plan pain management check cbc and bmp in am iv fluids advance diet Subjective ROS Limited/Unobtainable: No Interval Events: tolerated surgery very well Allergies: Coded Allergies: No Known Allergies (Unverified , 02/25/15) Objective Last 24 Hour Vital Signs Date Time Temp Pulse Resp B/P Pulse Ox O2 Delivery O2 Flow Rate FiO2 11/12/16 16:00 98.1 85 20 118/70 97 Room Air 11/12/16 11:55 97.2 66 20 111/54 95 Nasal Cannula 2.0 11/12/16 11:39 78 22 99 11/12/16 11:19 98.8 68 20 112/56 97 Nasal Cannula 3.0 11/12/16 11:00 68 20 113/60 97 Nasal Cannula 3.0 11/12/16 10:45 62 20 107/63 97 Nasal Cannula 3.0 11/12/16 10:32 64 20 109/60 96 Simple Mask 8.0 11/12/16 10:27 65 20 108/58 96 Simple Mask 8.0 11/12/16 10:22 97.7 72 20 139/70 96 Simple Mask 8.0 11/12/16 04:00 98.1 74 20 94/57 97 Room Air 11/12/16 00:00 97.8 83 20 138/74 98 Room Air 11/11/16 20:00 97.7 78 20 141/60 95 Room Air Intake and Output 11/11/16 11/12/16 19:00 07:00 Intake Total 1782.5 ml 612.5 ml Balance 1782.5 ml 612.5 ml Intake Oral 1700 ml IV Total 82.5 ml 612.5 ml # Voids 6 4 # Bowel Movements 1 1 Objective General Appearance: WD/WN, Lines, tubes and drains: peripheral, central line HEENT: normocephalic Neck: non-tender Respiratory/Chest: chest wall non-tender, lungs clear Cardiovascular/Chest: normal peripheral pulses, normal rate Abdomen: normal bowel sounds, non tender, clean surgical dressing Genitourinary/Rectal: normal genital exam Extremities: normal range of motion Neurologic: physiological chemist II-XII grossly normal Microbiology Date/Time Source Procedure Growth Status 11/10/16 11:45 Blood Blood Culture - Preliminary NO GROWTH AFTER 24 HOURS Resulted 11/10/16 11:30 Blood Blood Culture - Preliminary NO GROWTH AFTER 24 HOURS Resulted Laboratory Tests 11/12/16 06:15: White Blood Count 9.7, Red Blood Count 4.05L, Hemoglobin 12.1, Hematocrit 37.1, Mean Corpuscular Volume 92, Mean Corpuscular Hemoglobin 29.9, Mean Corpuscular Hemoglobin Concent 32.7, Red Cell Distribution Width 13.1, Platelet Count 336, Mean Platelet Volume 6.4L, Neutrophils (%) (Auto) 64.1, Lymphocytes (%) (Auto) 24.5, Monocytes (%) (Auto) 9.4, Eosinophils (%) (Auto) 1.1, Basophils (%) (Auto ) 1.0, Sodium Level 139, Potassium Level 4.3, Chloride Level 98, Carbon Dioxide Level 26, Anion Gap 15, Blood Urea Nitrogen 7, Creatinine 0.9, Estimat Glomerular Filtration Rate > 60, Glucose Level 131H, Calcium Level 9.4, Total Bilirubin 0.9, Aspartate Amino Transf (AST/SGOT) 29, Alanine Aminotransferase ( ALT/SGPT) 43H, Alkaline Phosphatase 280H, Total Protein 7.3, Albumin 3.3L, Globulin 4.0, Albumin/Globulin Ratio 0.8L Current Medications Medications (Trade) Dose Ordered Sig/Zhao Route PRN Reason Start Time Stop Time Status Last Admin Dose Admin Acetaminophen (Tylenol) 650 mg Q4H PRN ORAL fever 11/07/16 07:30 12/07/16 07:29 11/10/16 16:31 Acetaminophen/ Hydrocodone Bitart ([place]nd[place] 10/325) 1 ea Q4H PRN ORAL Severe Pain (Pain Scale 7-10) 11/12/16 12:30 11/19/16 12:29 11/12/16 16:36 Acetaminophen/ Hydrocodone Bitart ([place] 5/325) 1 tab Q4H PRN ORAL Moderate Pain (Pain Scale 4-6) 11/12/16 12:30 11/19/16 12:29 Al Hydroxide/Mg Hydroxide (Mylanta II) 30 ml Q6H PRN ORAL dyspepsia 11/07/16 07:30 12/07/16 07:29 11/09/16 20:28 Dextrose STAT PRN IV Hypoglycemia 11/07/16 07:30 4/14/17 07:29 Dextrose/ Electrolytes (D5 0.45%NS W/ KCl 20mEq) 1,000 ml @ 75 mls/hr [id number] IV 11/09/16 10:00 12/09/16 09:59 11/12/16 06:02 Diphenhydramine HCl (Benadryl) 25 mg Q6H PRN ORAL Itching/Pruritis 11/07/16 07:30 12/07/16 07:29 Docusate Sodium (Colace) 100 mg TWICE A DAY ORAL 11/12/16 18:00 12/12/16 17:59 Heparin Sodium (Porcine) (Heparin 5000 units/ml) 5,000 units EVERY 12 HOURS SUBQ 11/07/16 09:00 12/07/16 08:59 11/11/16 08:58 Insulin Aspart BEFORE MEALS AND HS SUBQ 11/07/16 22:00 12/07/16 21:59 11/12/16 12:47 Morphine Sulfate (Morphine Sulfate) 2 mg Q4H PRN IVP severe Pain (Pain Scale 7-10) 11/07/16 07:30 11/14/16 07:29 11/09/16 09:43 Nitroglycerin (Ntg) 0.4 mg Q5M X 3 DOSES PRN SL Prn Chest Pain 11/07/16 07:30 12/07/16 07:29 Ondansetron HCl (Zofran) 4 mg Q6H PRN IVP Nausea & Vomiting 11/12/16 12:30 12/12/16 12:29 Piperacillin Sod/ Tazobactam Sod/ Sodium Chloride (Zosyn/Sodium Chloride) 110 ml @ 27.5 mls/hr Q8HR IVPB 11/07/16 09:00 11/20/16 08:59 11/12/16 14:42 Polyethylene Glycol (Miralax) 17 gm HSPRN PRN ORAL Constipation 11/07/16 07:30 12/07/16 07:29 Temazepam (Restoril) 15 mg HSPRN PRN ORAL Insomnia 11/07/16 07:30 11/14/16 07:29 LUAN RESENDEZ Nov 12, 2016 17:03
[2016-11-12] MEDS: Docusate 100mg tablet ORAL SCH (17:34)
--- NOTE | 2016-11-12 22:18 | Operative Note - Dictated ---
DATE OF OPERATION: 11/12/2016 PREOPERATIVE DIAGNOSES: 1. Acute cholecystitis. 2. Choledocholithiasis. POSTOPERATIVE DIAGNOSES: 1. Acute cholecystitis. 2. Choledocholithiasis. OPERATION PERFORMED: Laparoscopic cholecystectomy. ATTENDING SURGEON: Hamlet Jett M.D. ANESTHESIOLOGIST: Pritesh Quiles M.D. 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 SPECIMENS: Gallbladder and contained stones sent to pathology for review. IV FLUIDS: Please see anesthesia records. ESTIMATED BLOOD LOSS: Minimal. DRAINS: None. COMPLICATIONS: None. WOUND CLASSIFICATION: Class 3. ANTIBIOTICS: The patient was on therapeutic Zosyn prior to entering the operating room for acute inflammatory process. COMPLICATIONS: None. SUMMARY OF INTRAOPERATIVE FINDINGS: 1. No intraoperative complications. 2. Specimen to pathology, gallbladder. 3. No drains. 4. Intrahepatic gallbladder. 5. Multiple stones within the gallbladder. 6. Contracted gallbladder. 7. Perihilar inflammation. INDICATIONS FOR OPERATION: This is a 61-year-old female, who was admitted to [facility] for acute cholecystitis and choledocholithiasis, status post ERCP with migration of stones in the common bile duct. As the patient's condition improved, surgery was called for evaluation of possible cholecystectomy. Given the patient's symptoms and findings consistent with biliary colic, cholecystitis, and choledocholithiasis, surgery was indicated and recommended. The risks, benefits, alternatives, and rational of surgery were explained in detail to the patient, including the risks of not operating. The patient expressed understanding and informed consent was obtained for laparoscopic, possible open cholecystectomy, which is performed today. OPERATIVE NOTE: The patient was taken to the operative room and placed on the operating room table in the supine position with bilateral arms out. All bony prominences were well padded with gel pads. SCDs were placed. Preoperative time-out was taken to identify the patient, procedure, operating staff, and surgical staff. The patient was on scheduled IV Zosyn for acute inflammatory process prior to entering the operating room. General anesthesia was induced and the patient was intubated. No Hardy catheter was placed. The patient had voided prior to entering the operating room. In the supine position, the abdomen was then prepped and draped in a standard surgical fashion. An infraumbilical midline incision was made and carried down to the fascia, which was divided exposing the peritoneal cavity. An open Hortencia technique was used to enter the peritoneal cavity and established pneumoperitoneum. The laparoscope was then inserted into the abdomen under direct vision. Subsequently, following ports were placed under direct visualization along with local anesthetic in the typical fashion. A 11 mm epigastric port followed by two 5 mm ports along the right costal margin. Peritoneal cavity was inspected. No abnormalities were found. The patient was then placed in reverse Trendelenburg position with the right side up. Omental attachments to the gallbladder were gently swept away until an atraumatic grasper could be used to retract the fundus of the gallbladder superiorly over the dome of the liver. Filmy adhesions between the gallbladder and omentum were also lysed sharply. The infundibulum was identified and subsequently retracted laterally towards the right lower quadrant using another grasper through the midclavicular port. This maneuver exposed closed triangle. The peritoneum overlying the infundibulum was incised anteriorly, then posteriorly, and the dissection was carried out. There was significant amount of inflammation noted in this area, and with very gentle dissection, the triangle was dissected out exposing the cystic artery, cystic plate, and cystic duct. Once these structures were carefully identified, the cystic duct was doubly clipped and divided, following by the cystic artery being doubly clipped and divided. Electrocautery was then used to separate the peritoneal attachments between the gallbladder and the liver bed. The gallbladder fossa and cystic artery were inspected to ensure no bleeding. Hemostasis was achieved with electrocautery. There was no leakage of bile from the cystic duct stump. Of note, the gallbladder was fairly intrahepatic with dense adhesions within the gallbladder bed. The gallbladder once freed was placed in endoscopic retrieval bag and easily removed from the abdomen through the epigastric port. Specimen was sent to pathology. The abdomen was then irrigated and cleared and re-examined and otherwise normal. The fascia at the supraumbilical and epigastric ports were reapproximated using 0-Vicryl suture in a [id number] fashion. All remaining skin incisions were then closed using 4-0 Monocryl sutures in interrupted subcuticular fashion. The operative field was cleaned and dried. Steri-Strips were applied. There were no intraoperative complications, and estimated blood loss was minimal. All sponge and needle counts were correct at the end of procedure. A surgical debriefing was performed. The patient was extubated and transferred to the postanesthetic care unit in stable condition. Hamlet Jett M.D. DR: ODELL JOB#: [id number] CC:
[2016-11-13] VITALS: BP 100/58
[2016-11-13 04:00] VITALS: BP 96/51
[2016-11-13] MEDS: Piperacillin/Tazobactam 3.375 GM in NS 110 ML IVPB SCH (05:46)
[2016-11-13] MEDS: NovoLOG Insulin Flexpen SUBQ SCH ×2 (05:50→13:50)
[2016-11-13 07:04] LABS: BASOPHILS % (AUTO) 0.6 % (0.0-2.0); EOSINOPHILS % (AUTO) 0.3 % (0.0-3.0); LYMPHOCYTES % (AUTO) 16.7 % (20.0-45.0); MEAN CORPUSCULAR HEMOGLOBIN 30.4 PG (27.0-31.0); MEAN CORPUSCULAR HGB CONC 33.7 G/DL (32.0-36.0); MEAN CORPUSCULAR VOLUME 90 FL (80-99); MEAN PLATELET VOLUME 6.4 FL (6.5-10.1); MONOCYTES % (AUTO) 7.4 % (1.0-10.0); NEUTROPHILS % (AUTO) 75.1 % (45.0-75.0); PLATELET COUNT 324 K/UL (150-450); RED BLOOD COUNT 3.62 M/UL (4.20-5.40); RED CELL DISTRIBUTION WIDTH 12.9 % (11.6-14.8); WHITE BLOOD COUNT 14.9 K/UL (4.8-10.8)
[2016-11-13 07:05] LABS: ALANINE AMINOTRANSFERASE 45 U/L (3-33); ALBUMIN/GLOBULIN RATIO 0.7 (1.0-2.7); ANION GAP 10 (5-15); ASPARTATE AMINO TRANSFERASE 37 U/L (5-40); CALCIUM 9.1 mg/dL (8.6-10.2); CARBON DIOXIDE 29 mEQ/L (20-30); CHLORIDE 93 mEQ/L (98-107); CREATININE 0.8 mg/dL (0.5-0.9); GLOMERULAR FILTRATION RATE > 60 mL/min (>60); HEMOLYSIS 0; POTASSIUM 4.4 mEQ/L (3.4-4.9); SODIUM 132 mEQ/L (135-145); TOTAL PROTEIN 6.7 g/dL (6.6-8.7)
[2016-11-13] MEDS: D5 1/2NS w/KCl 20mEq 1,000 ML IV SCH (07:20)
[2016-11-13 08:10] VITALS: BP 130/80
[2016-11-13] MEDS: Docusate 100mg tablet ORAL SCH (08:27)
[2016-11-13] MEDS: Heparin 5000 units/ml inj SUBQ SCH (08:28)
--- NOTE | 2016-11-13 09:19 | 48 Hour Post Anesthesia Eval ---
Post Anesthesia Evaluation Procedure: Laparoscopic cholecystectomy Date of Evaluation: Nov 13, 2016 Time of Evaluation: 14:10 Blood Pressure Systolic: 130 0: 80 Pulse Rate: 84 Respiratory Rate: 19 Temperature (Fahrenheit): 98.3 O2 Sat by Pulse Oximetry: 96 Airway: patent Nausea: No Vomiting: No Pain Intensity: 3 Hydration Status: adequate Cardiopulmonary Status: Stable Mental Status/LOC: patient returned to baseline Follow-up Care/Observations: As per surgery Post-Anesthesia Complications: No anesthetic complication Follow-up care needed: N/A LAKISHA MORILLO M.D. Nov 13, 2016 09:19
--- NOTE | 2016-11-13 09:44 | General Surgery Progress Note ---
General Surgery-Progress Note Subjective Symptoms: improved Objective Last 24 Hour Vital Signs Date Time Temp Pulse Resp B/P Pulse Ox O2 Delivery O2 Flow Rate FiO2 11/13/16 09:19 84 19 96 11/13/16 08:10 98.3 84 19 130/80 96 Room Air 11/13/16 04:00 97.5 62 20 96/51 95 Room Air 11/13/16 00:00 99.0 85 20 100/58 99 Room Air 11/12/16 19:00 97.9 85 20 111/67 93 Room Air 11/12/16 16:00 98.1 85 20 118/70 97 Room Air 11/12/16 11:55 97.2 66 20 111/54 95 Nasal Cannula 2.0 11/12/16 11:39 78 22 99 11/12/16 11:19 98.8 68 20 112/56 97 Nasal Cannula 3.0 11/12/16 11:00 68 20 113/60 97 Nasal Cannula 3.0 11/12/16 10:45 62 20 107/63 97 Nasal Cannula 3.0 11/12/16 10:32 64 20 109/60 96 Simple Mask 8.0 11/12/16 10:27 65 20 108/58 96 Simple Mask 8.0 11/12/16 10:22 97.7 72 20 139/70 96 Simple Mask 8.0 I&O Intake and Output 11/12/16 11/13/16 19:00 07:00 Intake Total 1320 ml 767.5 ml Output Total 550 ml 900 ml Balance 770 ml -132.5 ml Intake Oral 320 ml 480 ml IV Total 1000 ml 287.5 ml Output Urine Total 500 ml 900 ml Estimated Blood Loss 50 ml # Voids 2 7 Dressing: dry Wound: clean Drains: none Cardiovascular: RSR Respiratory: clear Abdomen: soft Extremities: no edema Laboratory Tests Test 11/13/16 06:00 White Blood Count 14.9 K/UL (4.8-10.8) #H Red Blood Count 3.62 M/UL (4.20-5.40) L Hemoglobin 11.0 G/DL (12.0-16.0) L Hematocrit 32.7 % (37.0-47.0) L Mean Corpuscular Volume 90 FL (80-99) Mean Corpuscular Hemoglobin 30.4 PG (27.0-31.0) Mean Corpuscular Hemoglobin Concent 33.7 G/DL (32.0-36.0) Red Cell Distribution Width 12.9 % (11.6-14.8) Platelet Count 324 K/UL (150-450) Mean Platelet Volume 6.4 FL (6.5-10.1) L Neutrophils (%) (Auto) 75.1 % (45.0-75.0) H Lymphocytes (%) (Auto) 16.7 % (20.0-45.0) L Monocytes (%) (Auto) 7.4 % (1.0-10.0) Eosinophils (%) (Auto) 0.3 % (0.0-3.0) Basophils (%) (Auto) 0.6 % (0.0-2.0) Sodium Level 132 mEQ/L (135-145) L Potassium Level 4.4 mEQ/L (3.4-4.9) Chloride Level 93 mEQ/L (98-107) L Carbon Dioxide Level 29 mEQ/L (20-30) Anion Gap 10 (5-15) Blood Urea Nitrogen 6 mg/dL (7-23) L Creatinine 0.8 mg/dL (0.5-0.9) Estimat Glomerular Filtration Rate > 60 mL/min (>60) Glucose Level 112 mg/dL (74-106) H Calcium Level 9.1 mg/dL (8.6-10.2) Total Bilirubin 1.0 mg/dL (0.0-1.2) Aspartate Amino Transf (AST/SGOT) 37 U/L (5-40) Alanine Aminotransferase (ALT/SGPT) 45 U/L (3-33) H Alkaline Phosphatase 210 U/L (35-104) H Total Protein 6.7 g/dL (6.6-8.7) Albumin 2.9 g/dL (3.5-5.2) L Globulin 3.8 g/dL Albumin/Globulin Ratio 0.7 (1.0-2.7) L Assessment Additional Comments Good post op course, tolerating PO intake Plan Additional Comments We will discharge her today, Rx Tylenol with codeine #3 disp 30, follow up with Dr Jett in one week. D/C antibiotics Alcon Carlos MD Nov 13, 2016 09:44
--- NOTE | 2016-11-13 09:45 | Infectious Diseases Prog Note ---
Assessment/Plan Assessment/Plan ASSESSMENT: 61 y/o female with: // E.cloacae bacteremia, m/l biliary source - repeat BCx NGTD // Recurrent gallstone cholangitis / choledocholithiasis - SP lap adilene 11/12 - SP ERCP 11/09 - elevated LFTs - CT A/P: Cholelithiasis. Punctate calcification in the distal common bile duct with mild biliary ductal dilatation, consistent with choledocholithiasis possible biliary obstruction // Sepsis SP // Leukocytosis - recurrent post-op // Fever - resolved // DM // Obesity // NKDA // Full Code PLAN: - continue zosyn d# - f/u final cultures - monitor CBC, temperatures, re-culture if worsening leukocytosis or recurrent fever - monitor CMP Subjective Allergies: Coded Allergies: No Known Allergies (Unverified , 02/25/15) Subjective remains afebrile recurrent leukocytosis SP lap adilene repeat BCx NGTD Objective Vital Signs Last 24 Hour Vital Signs Date Time Temp Pulse Resp B/P Pulse Ox O2 Delivery O2 Flow Rate FiO2 11/13/16 09:19 84 19 96 11/13/16 08:10 98.3 84 19 130/80 96 Room Air 11/13/16 04:00 97.5 62 20 96/51 95 Room Air 11/13/16 00:00 99.0 85 20 100/58 99 Room Air 11/12/16 19:00 97.9 85 20 111/67 93 Room Air 11/12/16 16:00 98.1 85 20 118/70 97 Room Air 11/12/16 11:55 97.2 66 20 111/54 95 Nasal Cannula 2.0 11/12/16 11:39 78 22 99 11/12/16 11:19 98.8 68 20 112/56 97 Nasal Cannula 3.0 11/12/16 11:00 68 20 113/60 97 Nasal Cannula 3.0 11/12/16 10:45 62 20 107/63 97 Nasal Cannula 3.0 11/12/16 10:32 64 20 109/60 96 Simple Mask 8.0 11/12/16 10:27 65 20 108/58 96 Simple Mask 8.0 11/12/16 10:22 97.7 72 20 139/70 96 Simple Mask 8.0 Height (Feet): 4 Height (Inches): 4.00 Weight (Pounds): 169 General Appearance: no acute distress Respiratory/Chest: no respiratory distress Cardiovascular: normal rate, regular rhythm Abdomen: normal bowel sounds, soft, non tender, non distended Microbiology Date/Time Source Procedure Growth Status 11/10/16 11:45 Blood Blood Culture - Preliminary NO GROWTH AFTER 48 HOURS Resulted 11/10/16 11:30 Blood Blood Culture - Preliminary NO GROWTH AFTER 48 HOURS Resulted Laboratory Tests Test 11/13/16 06:00 White Blood Count 14.9 K/UL (4.8-10.8) #H Red Blood Count 3.62 M/UL (4.20-5.40) L Hemoglobin 11.0 G/DL (12.0-16.0) L Hematocrit 32.7 % (37.0-47.0) L Mean Corpuscular Volume 90 FL (80-99) Mean Corpuscular Hemoglobin 30.4 PG (27.0-31.0) Mean Corpuscular Hemoglobin Concent 33.7 G/DL (32.0-36.0) Red Cell Distribution Width 12.9 % (11.6-14.8) Platelet Count 324 K/UL (150-450) Mean Platelet Volume 6.4 FL (6.5-10.1) L Neutrophils (%) (Auto) 75.1 % (45.0-75.0) H Lymphocytes (%) (Auto) 16.7 % (20.0-45.0) L Monocytes (%) (Auto) 7.4 % (1.0-10.0) Eosinophils (%) (Auto) 0.3 % (0.0-3.0) Basophils (%) (Auto) 0.6 % (0.0-2.0) Sodium Level 132 mEQ/L (135-145) L Potassium Level 4.4 mEQ/L (3.4-4.9) Chloride Level 93 mEQ/L (98-107) L Carbon Dioxide Level 29 mEQ/L (20-30) Anion Gap 10 (5-15) Blood Urea Nitrogen 6 mg/dL (7-23) L Creatinine 0.8 mg/dL (0.5-0.9) Estimat Glomerular Filtration Rate > 60 mL/min (>60) Glucose Level 112 mg/dL (74-106) H Calcium Level 9.1 mg/dL (8.6-10.2) Total Bilirubin 1.0 mg/dL (0.0-1.2) Aspartate Amino Transf (AST/SGOT) 37 U/L (5-40) Alanine Aminotransferase (ALT/SGPT) 45 U/L (3-33) H Alkaline Phosphatase 210 U/L (35-104) H Total Protein 6.7 g/dL (6.6-8.7) Albumin 2.9 g/dL (3.5-5.2) L Globulin 3.8 g/dL Albumin/Globulin Ratio 0.7 (1.0-2.7) L Current Medications Medications (Trade) Dose Ordered Sig/Zhao Route PRN Reason Start Time Stop Time Status Last Admin Dose Admin Acetaminophen (Tylenol) 650 mg Q4H PRN ORAL fever 11/07/16 07:30 12/07/16 07:29 11/10/16 16:31 Acetaminophen/ Hydrocodone Bitart ([place] 10/325) 1 ea Q4H PRN ORAL Severe Pain (Pain Scale 7-10) 11/12/16 12:30 11/19/16 12:29 11/12/16 16:36 Acetaminophen/ Hydrocodone Bitart ([place] 5/325) 1 tab Q4H PRN ORAL Moderate Pain (Pain Scale 4-6) 11/12/16 12:30 11/19/16 12:29 11/13/16 01:54 Al Hydroxide/Mg Hydroxide ([place] II) 30 ml Q6H PRN ORAL dyspepsia 11/07/16 07:30 12/07/16 07:29 11/09/16 20:28 Dextrose STAT PRN IV Hypoglycemia 11/07/16 07:30 12/07/16 07:29 Dextrose/ Electrolytes (D5 0.45%NS W/ KCl 20mEq) 1,000 ml @ 75 mls/hr [id number] IV 11/09/16 10:00 12/09/16 09:59 11/12/16 17:34 Diphenhydramine HCl (Benadryl) 25 mg Q6H PRN ORAL Itching/Pruritis 11/07/16 07:30 12/07/16 07:29 Docusate Sodium (Colace) 100 mg TWICE A DAY ORAL 11/12/16 18:00 12/12/16 17:59 11/13/16 08:27 Heparin Sodium (Porcine) (Heparin 5000 units/ml) 5,000 units EVERY 12 HOURS SUBQ 11/07/16 09:00 12/07/16 08:59 11/13/16 08:28 Insulin Aspart BEFORE MEALS AND HS SUBQ 11/07/16 22:00 12/07/16 21:59 11/13/16 05:50 Morphine Sulfate (Morphine Sulfate) 2 mg Q4H PRN IVP severe Pain (Pain Scale 7-10) 11/07/16 07:30 11/14/16 07:29 11/09/16 09:43 Nitroglycerin (Ntg) 0.4 mg Q5M X 3 DOSES PRN SL Prn Chest Pain 11/07/16 07:30 12/07/16 07:29 Ondansetron HCl (Zofran) 4 mg Q6H PRN IVP Nausea & Vomiting 11/12/16 12:30 12/12/16 12:29 Piperacillin Sod/ Tazobactam Sod/ Sodium Chloride (Zosyn/Sodium Chloride) 110 ml @ 27.5 mls/hr Q8HR IVPB 11/07/16 09:00 11/20/16 08:59 11/13/16 05:46 Polyethylene Glycol (Miralax) 17 gm HSPRN PRN ORAL Constipation 11/07/16 07:30 12/07/16 07:29 Temazepam (Restoril) 15 mg HSPRN PRN ORAL Insomnia 11/07/16 07:30 11/14/16 07:29 MICHAELA PLUNKETT Nov 13, 2016 09:45
[2016-11-13] MEDS ORDERED: TYLENOL WITH C1 EACH ORAL (11:28)
[2016-11-13 11:37] VITALS: BP 114/76
--- NOTE | 2016-11-13 12:47 | General Progress Note ---
Assessment/Plan Problem List: (1) Cholelithiases ICD Codes: K80.20 - Calculus of gallbladder without cholecystitis without obstruction SNOMED: 943374347 (2) Diabetes mellitus ICD Codes: E11.9 - Type 2 diabetes mellitus without complications SNOMED: 33868418 (3) Choledocholithiasis ICD Codes: K80.50 - Calculus of bile duct without cholangitis or cholecystitis without obstruction SNOMED: 285318258 Assessment/Plan s/p ercp repeat labs s/p cholecystectomy pend possible dc Subjective ROS Limited/Unobtainable: Yes Allergies: Coded Allergies: No Known Allergies (Unverified , 02/25/15) Subjective ne event Objective Last 24 Hour Vital Signs Date Time Temp Pulse Resp B/P Pulse Ox O2 Delivery O2 Flow Rate FiO2 11/13/16 11:37 98.2 79 19 114/76 97 Room Air 11/13/16 09:19 84 19 96 11/13/16 08:10 98.3 84 19 130/80 96 Room Air 11/13/16 04:00 97.5 62 20 96/51 95 Room Air 11/13/16 00:00 99.0 85 20 100/58 99 Room Air 11/12/16 19:00 97.9 85 20 111/67 93 Room Air 11/12/16 16:00 98.1 85 20 118/70 97 Room Air Intake and Output 11/12/16 11/13/16 19:00 07:00 Intake Total 1320 ml 767.5 ml Output Total 550 ml 900 ml Balance 770 ml -132.5 ml Intake Oral 320 ml 480 ml IV Total 1000 ml 287.5 ml Output Urine Total 500 ml 900 ml Estimated Blood Loss 50 ml # Voids 2 7 Laboratory Tests 11/13/16 06:00: White Blood Count 14.9#H, Red Blood Count 3.62L, Hemoglobin 11.0L, Hematocrit 32.7L, Mean Corpuscular Volume 90, Mean Corpuscular Hemoglobin 30.4, Mean Corpuscular Hemoglobin Concent 33.7, Red Cell Distribution Width 12.9, Platelet Count 324, Mean Platelet Volume 6.4L, Neutrophils (%) (Auto) 75.1H, Lymphocytes (%) (Auto) 16.7L, Monocytes (%) (Auto) 7.4, Eosinophils (%) (Auto) 0.3, Basophils (%) (Auto) 0.6, Sodium Level 132L, Potassium Level 4.4, Chloride Level 93L, Carbon Dioxide Level 29, Anion Gap 10, Blood Urea Nitrogen 6L, Creatinine 0.8, Estimat Glomerular Filtration Rate > 60, Glucose Level 112H, Calcium Level 9.1, Total Bilirubin 1.0, Aspartate Amino Transf (AST/SGOT) 37, Alanine Aminotransferase (ALT/SGPT) 45H, Alkaline Phosphatase 210H, Total Protein 6.7, Albumin 2.9L, Globulin 3.8, Albumin/Globulin Ratio 0.7L Height (Feet): 4 Height (Inches): 4.00 Weight (Pounds): 169 General Appearance: alert EENT: normal ENT inspection Neck: supple Cardiovascular: normal rate Respiratory/Chest: lungs clear Abdomen: normal bowel sounds, non tender, soft Extremities: non-tender DEACON JOHNSON Nov 13, 2016 12:47
--- NOTE | 2016-11-13 16:48 | Pulmonology Progress Note ---
Assessment/Plan Problems: (1) Cholelithiases (2) HTN (hypertension) (3) Gastritis (4) Diabetes mellitus Assessment/Plan pain management check cbc and bmp in am iv fluids advance diet dc home today Subjective ROS Limited/Unobtainable: No Interval Events: comfortable Allergies: Coded Allergies: No Known Allergies (Unverified , 02/25/15) Objective Last 24 Hour Vital Signs Date Time Temp Pulse Resp B/P Pulse Ox O2 Delivery O2 Flow Rate FiO2 11/13/16 11:37 98.2 79 19 114/76 97 Room Air 11/13/16 09:19 84 19 96 11/13/16 08:10 98.3 84 19 130/80 96 Room Air 11/13/16 04:00 97.5 62 20 96/51 95 Room Air 11/13/16 00:00 99.0 85 20 100/58 99 Room Air 11/12/16 19:00 97.9 85 20 111/67 93 Room Air Intake and Output 11/12/16 11/13/16 19:00 07:00 Intake Total 1320 ml 767.5 ml Output Total 550 ml 900 ml Balance 770 ml -132.5 ml Intake Oral 320 ml 480 ml IV Total 1000 ml 287.5 ml Output Urine Total 500 ml 900 ml Estimated Blood Loss 50 ml # Voids 2 7 Objective General Appearance: WD/WN, Lines, tubes and drains: peripheral, central line HEENT: normocephalic Neck: non-tender Respiratory/Chest: chest wall non-tender, lungs clear Cardiovascular/Chest: normal peripheral pulses, normal rate Abdomen: normal bowel sounds, non tender, clean surgical dressing Genitourinary/Rectal: normal genital exam Extremities: normal range of motion Neurologic: meat boner II-XII grossly normal Laboratory Tests 11/13/16 06:00: White Blood Count 14.9#H, Red Blood Count 3.62L, Hemoglobin 11.0L, Hematocrit 32.7L, Mean Corpuscular Volume 90, Mean Corpuscular Hemoglobin 30.4, Mean Corpuscular Hemoglobin Concent 33.7, Red Cell Distribution Width 12.9, Platelet Count 324, Mean Platelet Volume 6.4L, Neutrophils (%) (Auto) 75.1H, Lymphocytes (%) (Auto) 16.7L, Monocytes (%) (Auto) 7.4, Eosinophils (%) (Auto) 0.3, Basophils (%) (Auto) 0.6, Sodium Level 132L, Potassium Level 4.4, Chloride Level 93L, Carbon Dioxide Level 29, Anion Gap 10, Blood Urea Nitrogen 6L, Creatinine 0.8, Estimat Glomerular Filtration Rate > 60, Glucose Level 112H, Calcium Level 9.1, Total Bilirubin 1.0, Aspartate Amino Transf (AST/SGOT) 37, Alanine Aminotransferase (ALT/SGPT) 45H, Alkaline Phosphatase 210H, Total Protein 6.7, Albumin 2.9L, Globulin 3.8, Albumin/Globulin Ratio 0.7L LUAN RESENDEZ Nov 13, 2016 16:48
--- NOTE | 2016-11-13 19:39 | Consultation ---
DATE OF CONSULTATION: 11/10/2016 SURGICAL CONSULTATION: CONSULTING PHYSICIAN: Kamron Basurto M.D. ATTENDING PHYSICIAN: Ross Barillas M.D. REQUESTING PHYSICIAN: Ross Barillas M.D. PERTINENT HISTORY: The patient is a very pleasant 61-year-old, heavyset Latin female, who has a history of severe abdominal pain in the epigastrium and right upper quadrant, came into the emergency room, where it was found that she had an elevated white blood count as well as an elevated amylase and lipase consistent with pancreatitis. The patient then underwent GI evaluation for possible CAT scan. The patient then underwent ERCP by Dr. Knight, where he found distal small common bile duct stone at the ampulla of Vater. Sphincterotomy was done, and the patient felt better, however, presents here for evaluation and possible surgery. Currently, she is not jaundiced. She is hungry. There is no nausea or vomiting and the pain has resolved. PAST MEDICAL HISTORY: Pertinent for section. No history of diabetes, TB, lung or heart disease. MEDICATIONS: Analgesia, antibiotics . REVIEW OF SYSTEMS: HEENT: No headaches, tinnitus, or dysphagia. No scleral icterus. No history of prior similar episode. Cardiopulmonary: No history of chest pain, shortness of breath, cough or sputum. Gastrointestinal: As above. No diarrhea or constipation. No light stools. : No dysuria, hematuria or dark urine. No obstructive symptoms. PHYSICAL EXAMINATION: VITAL SIGNS: Blood pressure is 120/72, temperature 97.8 degrees, pulse 70, and respirations 16. GENERAL: The patient is a well-developed and pleasant, middle-aged heavy-set female, in no distress. HEENT: No scleral icterus. Mouth and throat are clear. NECK: Supple. LUNGS: Clear. HEART: Rhythmic and regular. ABDOMEN: Soft, flat, obese, old Pfannenstiel well-healed scar, 0 to 1+ tender in the epigastric and right upper quadrant. No mass. Bowel sounds are normoactive. LABORATORY VALUES: White blood count is normal as well as hemoglobin and hematocrit. Electrolytes are normal. Liver function tests reveal a total bilirubin of 2.1 with a 1.6 direct bilirubin. Alkaline phosphatase, SGOT and SGPT are slightly elevated. IMPRESSION: 1. Cholelithiasis, possible cholecystitis. 2. Choledocholithiasis, status post endoscopic retrograde cholangiopancreatography with removal of a distal common bile duct stone, persistent elevated total bilirubin, most likely secondary to manipulation, sphincterotomy with a little inflammation. PLAN: The patient is to undergo laparoscopic cholecystectomy, possible cholangiogram and if the liver function tests stay elevated, however, if they drop, she may not need a cholangiogram once they normalize. She is scheduled to undergo laparoscopic cholecystectomy on Saturday morning, 11/12/2016, by myself or Dr. Jett. The patient and her both understand the indications, risks, benefits, and possible complications, and they wished to approach. Of interest is that they have twins, [id number], that underwent laparoscopic cholecystectomy for significant cholecystitis in the recent past, so they are very aware of the procedure and what it entails. Kamron Basurto M.D. DR: JACINDA/sarah JOB#: [id number] CC:
--- NOTE | 2016-11-15 14:31 | Discharge Summary ---
Discharge Summary Hospital Course Date of Admission Nov 07, 2016 at 04:08 Date of Discharge Nov 13, 2016 at 15:00 Admitting Diagnosis biliary colic HPI Obdulia Vora is a 61 year old female who was admitted on Nov 07, 2016 at 04: 08 for Biliary Colic Hospital Course [id number] Discharge Discharge Disposition Patient was discharged to Home (01) Discharge Diagnoses: Peggy Smallwood NP Nov 15, 2016 14:30
--- NOTE | 2016-11-16 03:38 | Discharge Summary 2 SIG ---
DATE OF ADMISSION: 11/07/2016 DATE OF DISCHARGE: 11/13/2016 CONSULTANTS: 1. Hamlet Jett M.D. 2. Eliseo Knight M.D. 3. Wale Venegas M.D. BRIEF HOSPITAL COURSE: The patient is a 61-year-old female with history of diabetes mellitus and hypertension, presented to ED complaining of right upper quadrant, sharp, nonradiating abdominal pain with no aggravating or relieving factors. On evaluation at ED, labs showed leukocytosis. CT of the abdomen showed choledocholithiasis. She was admitted and was placed on NPO and IV hydration. GI and Surgical Services were consulted. Infectious Disease specialist was consulted and the patient was given IV Zosyn. On 11/09/2016, Dr. Knight performed ERCP with sphincterotomy and stone removal. On 11/12/2016 she underwent laparoscopic cholecystectomy by Dr. Jett. Post surgery, abdominal pain improved and was tolerating good p.o. intake. She was given pain management and was advised to follow up with Dr. Jett in a week. Antibiotics were discontinued. She was eventually discharged home. FINAL DIAGNOSES: 1. Sepsis. 2. Acute cholecystitis. 3. Choledocholithiasis. 4. Cholelithiasis. 5. Status post endoscopic retrograde cholangiopancreatography with removal of stone. 6. Status post laparoscopic cholecystectomy. 7. Diabetes mellitus. 8. Hypertension. 9. Gastritis. 10. Enterococcus cloacae bacteremia, most likely biliary source. 11. Obesity. Ross Barillas M.D. I have been assigned to dictate discharge summary on this account and I was not involved in the patient's management. Peggy Smallwood N.P. DR: ANDREW JOB#: [id number] CC: FABIAN
== END 2016-11-13 15:00 | disposition home or self-care (01) | DRG 710 ==
LOC: EMR 01:19 → 4E 04:08 → EDBEDREQ 04:22
PROC: 0FC98ZZ Extirpation of Matter from Common Bile Duct, Via Natural or Artificial Opening Endoscopic (ICD-10-PCS; 2016-11-09 13:21)
PROC: 0FT44ZZ Resection of Gallbladder, Percutaneous Endoscopic Approach (ICD-10-PCS; principal; 2016-11-12 08:00)
DX: A41.9 Sepsis, unspecified organism (principal); K80.62 Calculus of gallbladder and bile duct with acute cholecystitis without obstruction; I10 Essential (primary) hypertension; Z68.41 Body mass index [BMI] 40.0-44.9, adult; E11.9 Type 2 diabetes mellitus without complications; E66.9 Obesity, unspecified; K82.8 Other specified diseases of gallbladder; K29.70 Gastritis, unspecified, without bleeding; B95.2 Enterococcus as the cause of diseases classified elsewhere
CPT/HCPCS: 36415; 74177; 74330; 76000; 80053; 82150; 82248; 82962; 83690; 83735; 84484; 85007; 85025; 85610; 85730; 87040; 87181; 94003; 94150; J1815; J2250; J2405; J2710; J8499

== ENCOUNTER 2017-06-08 08:02 | Emergency (ER) | payer MEDICAID, OTHER ==
[~2017-06-08] VITALS: Ht 147.3 cm; Wt 63.5 kg
[~2017-06-08 08:02] MED LIST changes: +TYLENOL WITH C1 EACH ORAL
[2017-06-08 08:15] VITALS: BP 151/89
[2017-06-08] MEDS ORDERED: Lidocaine 1% Plain 30 ml INJ ONE (09:00)
[2017-06-08] MEDS ORDERED: CLINDAMYCIN HC300 MG ORAL (09:24)
[2017-06-08] MEDS ORDERED: TYLENOL EXTRA500 MG ORAL (09:24)
[2017-06-08 09:29] VITALS: BP 151/89
--- NOTE | 2017-06-08 10:01 | Emergency Room Report ---
History of Present Illness General Chief Complaint: Skin Rash/Abscess Source: Patient Present Illness HPI 62-year-old female presents ED for evaluation. States there is a bump and swelling to her right axilla x1 day. Denies any pain. Denies any fevers or chills. No other aggravating relieving factors. Denies any other systemic symptoms Allergies: Coded Allergies: No Known Allergies (Unverified , 02/25/15) Patient History Past Medical History: DM, HTN Past Surgical History: none Pertinent Family History: none Social History: Denies: smoking, alcohol use, drug use Now: No Immunizations: UTD Reviewed Nursing Documentation: PMH: Agreed, PSxH: Agreed Nursing Documentation-PMH Hx Cardiac Problems: Yes Hx Hypertension: Yes Hx Pacemaker: No Hx Asthma: No Hx COPD: No Hx Diabetes: Yes - Type II Hx Cancer: No Hx Gastrointestinal Problems: Yes Hx Dialysis: No Hx Neurological Problems: No Hx Cerebrovascular Accident: No Hx Seizures: No Review of Systems All Other Systems: negative except mentioned in HPI Physical Exam Vital Signs Date Time Temp Pulse Resp B/P (MAP) Pulse Ox O2 Delivery O2 Flow Rate FiO2 06/08/17 08:05 98.1 78 16 151/89 96 Room Air Sp02 EP Interpretation: reviewed, normal General Appearance: no apparent distress, alert, GCS 15, non-toxic Head: normocephalic Eyes: bilateral eye normal inspection, bilateral eye PERRL ENT: normal ENT inspection Neck: normal inspection Respiratory: normal inspection Cardiovascular #1: normal inspection Gastrointestinal: normal inspection Rectal: deferred Genitourinary: no CVA tenderness Musculoskeletal: normal inspection Neurologic: alert, oriented x3, responsive, motor strength/tone normal, sensory intact, speech normal Psychiatric: judgement/insight normal, memory normal, mood/affect normal, no suicidal/homicidal ideation Skin: other - 2x2cm abscess R axilla. fluctuance noted. no surrounding induration Lymphatic: normal inspection Procedures Incision and Drainage Incision and Drainage : Consent: Verbal Blade Size: 11 I & D Procedure: betadine prep, sterile drapes applied, sterile dressing applied, gauze wick placed Wound Location: axilla - right Wound's Depth, Shape: other - abscess Wound Explored: purulent discharge expressed Anesthesia: 1% Lidocaine Splint Applied?: No Sling Applied?: No Patient Tolerated: Well Complications: None Medical Decision Making Diagnostic Impression: Primary Impression: Abscess of axilla ER Course Hospital Course 62-year-old female presents to ED swelling to right axilla Clinical course Patient placed on stretcher. After initial history, physical exam reveals a middle-aged female in no acute distress. On exam there is a abscess to her right axilla. Fluctuant. There is no surrounding erythema or induration. Patient appears nontoxic, vitals stable. anesthesia injected. abscess drained without complication. Dressing applied Diagnosis - abscess of axilla Stable and discharged to home with prescription for Tylenol, Clindamycin. wound Care instructions given. Followup with PMD. Return to ED if any signs of infection develop Last Vital Signs Date Time Temp Pulse Resp B/P (MAP) Pulse Ox O2 Delivery O2 Flow Rate FiO2 06/08/17 09:29 98.1 16 151/89 96 Room Air 06/08/17 08:05 78 Status: improved Disposition: HOME, SELF-CARE Condition: Stable Scripts Acetaminophen* (TYLENOL EXTRA STRENGTH*) 500 Mg Tablet 500 MG ORAL Q8H Y for Prn Headache/Temp > 101, #30 TAB 0 Refills Prov: DILAN GUILLERMO M.D. 06/08/17 Clindamycin Hcl (CLINDAMYCIN HCL) 300 Mg Capsule 300 MG ORAL THREE TIMES A DAY, #21 CAP Prov: DILAN GUILLERMO M.D. 06/08/17 Patient Instructions: DILAN Mayfield M.D. Jun 08, 2017 10:01
== END 2017-06-08 09:29 | disposition home or self-care (01) ==
LOC: EMR 08:45
DX: L03.111 Cellulitis of right axilla (principal); I10 Essential (primary) hypertension; E11.9 Type 2 diabetes mellitus without complications
CPT/HCPCS: 10060; 99284; J2001

== ENCOUNTER 2017-09-02 20:10 | Emergency (ER) | payer MEDICAID ==
[~2017-09-02] VITALS: Ht 134.6 cm; Wt 73.5 kg
[~2017-09-02 20:10] MED LIST changes: +CLINDAMYCIN HC300 MG ORAL; +TYLENOL EXTRA500 MG ORAL
--- NOTE | 2017-09-02 20:56 | Emergency Room Report ---
History of Present Illness General Chief Complaint: Abdominal Pain Source: Patient (Francesca Masters M.D.) Source: Patient (RAHUL JACKSON M.D.) Present Illness HPI 62-year-old female with hypertension diabetes p/w abdominal pain 2 days. Patient states pain started suddenly,, localized to left and right lower quadrant, non radiating, sharp in nature, intermittent. No relieving or exacerbating factors. Severity is 5/10. Denies nvd. No constipation + fever, chills. No hx of abdominal surgeries. No hx of endoscopies/colonoscopies. (Francesca Masters M.D.) Allergies: Coded Allergies: No Known Allergies (Unverified , 02/25/15) Patient History Past Medical History: see triage record Past Surgical History: none Pertinent Family History: none Last Menstrual Period: years Reviewed Nursing Documentation: PMH: Agreed, PSxH: Agreed (Francesca Masters M.D. ) Nursing Documentation-PMH Past Medical History: No History, Except For Hx Cardiac Problems: Yes Hx Hypertension: Yes Hx Pacemaker: No Hx Asthma: No Hx COPD: No Hx Diabetes: Yes - Type II Hx Cancer: No Hx Gastrointestinal Problems: Yes Hx Dialysis: No Hx Neurological Problems: No Hx Cerebrovascular Accident: No Hx Seizures: No (Francesca Masters M.D.) Review of Systems All Other Systems: negative except mentioned in HPI (Francesca Masters M.D.) Physical Exam Vital Signs Date Time Temp Pulse Resp B/P (MAP) Pulse Ox O2 Delivery O2 Flow Rate FiO2 09/02/17 20:28 100.0 109 20 108/67 96 Room Air General Appearance: alert, GCS 15, non-toxic, mild distress Gastrointestinal: other - +LLQ tenderness no rebound. no rlq tenderness (Francesca Masters M.D.) Medical Decision Making Diagnostic Impression: Primary Impression: Abdominal pain Qualified Codes: R10.32 - Left lower quadrant pain Additional Impression: UTI (urinary tract infection) Qualified Codes: N30.00 - Acute cystitis without hematuria ER Course 62-year-old female with abdominal pain for 2 days Differential Diagnosis: Gastritis, gastroenteritis, cholecystitis, appendicitis, diverticulitis, UTI/ pyelo Plan: Basic labs, ua, ekg pain control, IVF CT abdomen pelvis ER course: has been stable Please note that this Emergency Department Report was dictated using [employer] tender technology software, occasionally this can lead to erroneous entry secondary to interpretation by the dictation equipment EKG Diagnostic Results EP Interpretation: Yes Rate: Tachycardic Rhythm: NSR ST Segments: No acute changes ASA given to patient: No (Francesca Masters M.D.) ER Course Patient signed out to me pending CT scan report. Patient came in with abdominal pain mostly left lower quadrant. CT show no appendicitis small bowel she should or diverticulitis. She may have a UTI. CT scan abdomen and pelvis: Read by radiologist. No appendicitis, small bowel injection, or diverticulitis. Bilateral ureteral mild histamine. (RAHUL JACKSON M.D.) CT/MRI/US Diagnostic Results CT/MRI/US Diagnostic Results : Imaging Test Ordered: CT abdomenand pelvis Impression read by radiologist. No appy (RAHUL JACKSON M.D.) Last Vital Signs Date Time Temp Pulse Resp B/P (MAP) Pulse Ox O2 Delivery O2 Flow Rate FiO2 09/02/17 20:28 100.0 109 20 108/67 96 Room Air (Francesca Masters M.D.) Status: improved (RAHUL JACKSON M.D.) Disposition: HOME, SELF-CARE Condition: Stable Scripts Cephalexin* (KEFLEX*) 500 Mg Capsule 500 MG ORAL TID, #21 CAP 0 Refills Prov: RAHUL JACKSON M.D. 09/02/17 Referrals: [facility] (PCP) Additional Instructions: Followup with your DrGlenda in 7 days. Return if symptom worsen. Francesca Masters M.D. Sep 02, 2017 20:56 RAHUL JACKSON M.D. Sep 02, 2017 22:40
[2017-09-02 21:17] LABS: BASOPHILS % (AUTO) 1.4 % (0.0-2.0); EOSINOPHILS % (AUTO) 0.1 % (0.0-3.0); HEMATOCRIT 43.5 % (37.0-47.0); HEMOGLOBIN 13.8 G/DL (12.0-16.0); LYMPHOCYTES % (AUTO) 11.4 % (20.0-45.0); MEAN CORPUSCULAR VOLUME 92 FL (80-99); MONOCYTES % (AUTO) 9.3 % (1.0-10.0); NEUTROPHILS % (AUTO) 77.8 % (45.0-75.0); PLATELET COUNT 302 K/UL (150-450); RED BLOOD COUNT 4.74 M/UL (4.20-5.40); RED CELL DISTRIBUTION WIDTH 12.3 % (11.6-14.8); WHITE BLOOD COUNT 13.5 K/UL (4.8-10.8)
[2017-09-02 21:18] LABS: APPEARANCE,URINE CLEAR; BILIRUBIN, URINE NEGATIVE (NEGATIVE); COLOR,URINE PALE YELLOW; GLUCOSE, URINE (UA) NEGATIVE (NEGATIVE); KETONES,URINE 1+ (NEGATIVE); LEUKOCYTE ESTERASE ,URINE 3+ (NEGATIVE); NITRITE,URINE NEGATIVE (NEGATIVE); PH,URINE 6.5 (4.5-8.0); PROTEIN,URINE NEGATIVE (NEGATIVE); UROBILINOGEN,URINE NORMAL MG/DL (0.0-1.0)
[2017-09-02 21:22] LABS: ANION GAP 11 mmol/L (5-15); BLOOD UREA NITROGEN 11 mg/dL (7-18); CALCIUM 8.2 MG/DL (8.5-10.1); CARBON DIOXIDE 24 MMOL/L (21-32); CHLORIDE 98 MMOL/L (98-107); CREATININE 0.9 MG/DL (0.55-1.30); POTASSIUM 3.6 MMOL/L (3.5-5.1); SODIUM 133 MMOL/L (136-145)
[2017-09-02 21:38] LABS: ALANINE AMINOTRANSFERASE 28 U/L (12-78); ALBUMIN 3.2 G/DL (3.4-5.0); ALBUMIN/GLOBULIN RATIO 0.6 (1.0-2.7); ALKALINE PHOSPHATASE 128 U/L (46-116); ASPARTATE AMINO TRANSFERASE 32 U/L (15-37); BILIRUBIN,TOTAL 1.2 MG/DL (0.2-1.0)
[2017-09-02 21:39] LABS: BILIRUBIN,DIRECT 0.3 MG/DL (0.0-0.3)
[2017-09-02] MEDS ORDERED: cefTRIAXone 1 GM in NS 55 ML IVPB ONE (21:45)
[2017-09-02] MEDS ORDERED: KEFLEX500 MG ORAL (22:39)
[2017-09-02 22:53] VITALS: BP 106/61
--- NOTE | 2017-09-03 12:50 | Diagnostic Imaging Report ---
Indication: Abdominal pain Technique: Continuous helical transaxial imaging of the abdomen and pelvis was obtained from the lung bases to the pubic symphysis during intravenous contrast administration. Coronal 2-D reformats were also obtained. Study obtained in a Siemens sensation [address] Automatic Exposure Control was utilized. Total Dose length Product (DLP): 895.[address] Dose Index Volume (CTDIvol): 18.6 mGy Comparison: None Findings: The lungs are clear. There is enhancement and slight thickening of the uroepithelium of both collecting systems without definite hydronephrosis or obstructing stone. Consider pyelonephritis/cystitis. No renal abscess identified. Bladder is unremarkable. There is a fat containing mass in the left adnexa measuring approximately 5 x 4 cm consistent with a dermoid cyst. Normal appendix noted. No evidence of free air, free fluid or bowel obstruction. Adrenal glands, liver and pancreas appear normal. Gallbladder is absent. Calcified granuloma noted within the spleen. IMPRESSION: Uroepithelial enhancement and mild periureteral stranding noted bilaterally may be on the basis of urinary tract infection or pyelonephritis/pyelitis. Please correlate clinically. 5 x 4 cm left ovarian dermoid cyst. Calcified splenic granuloma. Status post cholecystectomy. [facility] has communicated the preliminary results to the Emergency Department. Their findings are largely concordant with this report. The CT scanner at [facility] is accredited by the [employer] and the scans are performed using dose optimization techniques as appropriate to a performed exam including Automatic Exposure control.
--- NOTE | 2017-09-03 17:54 | Cardiology Report ---
APPROVED REPORT EKG Measurement Heart [id number] Sinus tachycardia Otherwise normal ECG
== END 2017-09-02 23:00 | disposition home or self-care (01) ==
LOC: EMR 20:15
DX: R10.31 Right lower quadrant pain (principal); R10.32 Left lower quadrant pain; N39.0 Urinary tract infection, site not specified; I10 Essential (primary) hypertension; E11.9 Type 2 diabetes mellitus without complications; D27.1 Benign neoplasm of left ovary; Z90.49 Acquired absence of other specified parts of digestive tract
CPT/HCPCS: 36415; 74177; 80053; 81003; 82248; 83605; 83690; 85025; 87086; 87181; 93005; 96361; 96365; 99284; J0696; Q9967

== ENCOUNTER 2017-12-27 20:50 | Emergency (ER) | payer MEDICAID ==
[~2017-12-27] VITALS: Ht 121.9 cm; Wt 72.6 kg
[~2017-12-27 20:50] MED LIST changes: +KEFLEX500 MG ORAL
[2017-12-27 21:00] VITALS: BP 99/63
[2017-12-27] MEDS ORDERED: Dicyclomine HCl 10mg/5ml oral soln ORAL ONE (21:15)
[2017-12-27 22:09] LABS: APPEARANCE,URINE CLEAR; BILIRUBIN, URINE NEGATIVE (NEGATIVE); GLUCOSE, URINE (UA) NEGATIVE (NEGATIVE); KETONES,URINE 3+ (NEGATIVE); LEUKOCYTE ESTERASE ,URINE 1+ (NEGATIVE); NITRITE,URINE NEGATIVE (NEGATIVE); PH,URINE 5 (4.5-8.0); PROTEIN,URINE 2+ (NEGATIVE); UROBILINOGEN,URINE NORMAL MG/DL (0.0-1.0)
[2017-12-27 22:12] LABS: BASOPHILS % (AUTO) 0.7 % (0.0-2.0); EOSINOPHILS % (AUTO) 1.1 % (0.0-3.0); HEMATOCRIT 44.7 % (37.0-47.0); HEMOGLOBIN 14.7 G/DL (12.0-16.0); MEAN CORPUSCULAR VOLUME 91 FL (80-99); NEUTROPHILS % (AUTO) 81.2 % (45.0-75.0); PLATELET COUNT 292 K/UL (150-450); WHITE BLOOD COUNT 9.2 K/UL (4.8-10.8)
[2017-12-27 22:18] LABS: ANION GAP 14 mmol/L (5-15); BLOOD UREA NITROGEN 15 mg/dL (7-18); CALCIUM 9.1 MG/DL (8.5-10.1); CARBON DIOXIDE 20 MMOL/L (21-32); CHLORIDE 100 MMOL/L (98-107); CREATININE 0.8 MG/DL (0.55-1.30); POTASSIUM 3.6 MMOL/L (3.5-5.1); SODIUM 134 MMOL/L (136-145)
[2017-12-27 22:20] LABS: ALANINE AMINOTRANSFERASE 26 U/L (12-78); ALBUMIN 3.9 G/DL (3.4-5.0); ALBUMIN/GLOBULIN RATIO 0.8 (1.0-2.7); ALKALINE PHOSPHATASE 90 U/L (46-116); ASPARTATE AMINO TRANSFERASE 28 U/L (15-37); BILIRUBIN,TOTAL 0.8 MG/DL (0.2-1.0)
[2017-12-27 22:23] LABS: COLOR,URINE YELLOW
[2017-12-27] MEDS ORDERED: ZOFRAN4 MG ORAL (22:44)
[2017-12-27] MEDS ORDERED: DICYCLOMINE HCL10 MG PO (22:44)
--- NOTE | 2017-12-29 05:09 | Emergency Room Report ---
History of Present Illness General Chief Complaint: Nausea, Vomiting, and Diarrhea Source: Patient Present Illness HPI Patient is a 62-year-old female who presented after increased nausea vomiting diarrhea. Patient had onset of symptoms approximate 1 day prior to arrival. Patient denied hematemesis or bloody stools. Patient reported having watery diarrhea. She reported having generalized abdominal cramping. Patient had no recent travel or bad food exposure. Allergies: Coded Allergies: No Known Allergies (Unverified , 02/25/15) Patient History Past Medical History: see triage record Last Menstrual Period: none Reviewed Nursing Documentation: PMH: Agreed; PSxH: Agreed Nursing Documentation-PMH Hx Cardiac Problems: Yes Hx Hypertension: Yes Hx Pacemaker: No Hx Asthma: No Hx COPD: No Hx Diabetes: Yes - Type II Hx Cancer: No Hx Gastrointestinal Problems: Yes Hx Dialysis: No Hx Neurological Problems: No Hx Cerebrovascular Accident: No Hx Seizures: No Review of Systems All Other Systems: negative except mentioned in HPI Physical Exam Vital Signs Date Time Temp Pulse Resp B/P (MAP) Pulse Ox O2 Delivery O2 Flow Rate FiO2 12/27/17 20:57 113 16 120/75 94 Room Air 12/27/17 21:00 98.5 98.5 Sp02 EP Interpretation: reviewed, normal General Appearance: normal inspection, well appearing, no apparent distress, alert, GCS 15 Head: atraumatic ENT: normal ENT inspection, hearing grossly normal, normal voice Neck: normal inspection, full range of motion, supple, no bony tend Respiratory: normal inspection, lungs clear, normal breath sounds, no respiratory distress, no retraction, no wheezing Cardiovascular #1: regular rate, rhythm, no edema Gastrointestinal: normal inspection, normal bowel sounds, non tender, soft, no guarding, no hernia Genitourinary: no CVA tenderness Musculoskeletal: normal inspection, back normal, normal range of motion Neurologic: normal inspection, alert, responsive, speech normal Psychiatric: normal inspection, judgement/insight normal, mood/affect normal Skin: normal inspection, normal color, no rash Medical Decision Making Diagnostic Impression: Primary Impression: Abdominal pain Additional Impression: Gastroenteritis ER Course Patient presented for abdominal pain. Differential diagnoses included ischemic bowel, appendicitis, perforated viscus, abdominal aortic aneurysm, inferior myocardial infarction, viral gastroenteritis Because of complexity of patient's case laboratory testing and imaging studies were ordered. Patient given IV fluids as well as medications for abdominal discomfort. Labs Test 12/27/17 21:42 12/27/17 21:45 White Blood Count 9.2 K/UL (4.8-10.8) Red Blood Count 4.90 M/UL (4.20-5.40) Hemoglobin 14.7 G/DL (12.0-16.0) Hematocrit 44.7 % (37.0-47.0) Mean Corpuscular Volume 91 FL (80-99) Mean Corpuscular Hemoglobin 30.0 PG (27.0-31.0) Mean Corpuscular Hemoglobin Concent 32.9 G/DL (32.0-36.0) Red Cell Distribution Width 13.0 % (11.6-14.8) Platelet Count 292 K/UL (150-450) Mean Platelet Volume 7.0 FL (6.5-10.1) Neutrophils (%) (Auto) 81.2 % (45.0-75.0) Lymphocytes (%) (Auto) 11.0 % (20.0-45.0) Monocytes (%) (Auto) 6.0 % (1.0-10.0) Eosinophils (%) (Auto) 1.1 % (0.0-3.0) Basophils (%) (Auto) 0.7 % (0.0-2.0) Sodium Level 134 MMOL/L (136-145) Potassium Level 3.6 MMOL/L (3.5-5.1) Chloride Level 100 MMOL/L (98-107) Carbon Dioxide Level 20 MMOL/L (21-32) Anion Gap 14 mmol/L (5-15) Blood Urea Nitrogen 15 mg/dL (7-18) Creatinine 0.8 MG/DL (0.55-1.30) Estimat Glomerular Filtration Rate > 60 mL/min (>60) Glucose Level 131 MG/DL (74-106) Calcium Level 9.1 MG/DL (8.5-10.1) Total Bilirubin 0.8 MG/DL (0.2-1.0) Aspartate Amino Transf (AST/SGOT) 28 U/L (15-37) Alanine Aminotransferase (ALT/SGPT) 26 U/L (12-78) Alkaline Phosphatase 90 U/L (46-116) Total Protein 8.5 G/DL (6.4-8.2) Albumin 3.9 G/DL (3.4-5.0) Globulin 4.6 g/dL Albumin/Globulin Ratio 0.8 (1.0-2.7) Lipase 71 U/L (73-393) Urine Color Yellow Urine Appearance Clear Urine pH 5 (4.5-8.0) Urine Specific [place] 1.020 (1.005-1.035) Urine Protein 2+ (NEGATIVE) Urine Glucose (UA) Negative (NEGATIVE) Urine Ketones 3+ (NEGATIVE) Urine Occult Blood 1+ (NEGATIVE) Urine Nitrite Negative (NEGATIVE) Urine Bilirubin Negative (NEGATIVE) Urine Urobilinogen Normal MG/DL (0.0-1.0) Urine Leukocyte Esterase 1+ (NEGATIVE) Urine RBC 2-4 /HPF (0 - 2) Urine WBC 2-4 /HPF (0 - 2) Urine Squamous Epithelial Cells Few /LPF (NONE/OCC) Urine Amorphous Sediment Few /LPF (NONE) Urine Bacteria Few /HPF (NONE) Last Vital Signs Date Time Temp Pulse Resp B/P (MAP) Pulse Ox O2 Delivery O2 Flow Rate FiO2 12/27/17 22:59 80 18 99/63 96 Room Air 12/27/17 21:00 98.5 98.5 Status: improved Disposition: HOME, SELF-CARE Condition: Stable Scripts Dicyclomine Hcl* (DICYCLOMINE HCL*) 10 Mg Capsule 10 MG PO QID, #20 CAP Prov: Ray Dodge 12/27/17 Ondansetron (Zofran) 4 Mg Tablet 4 MG ORAL Q6H PRN for Nausea & Vomiting, #30 TAB 0 Refills Prov: Ray Dodge 12/27/17 Referrals: [facility] (PCP) Patient Instructions: Viral Gastroenteritis, Adult Ray Dodge December 29, 2017 05:09
== END 2017-12-27 23:08 | disposition home or self-care (01) ==
LOC: EMR 21:17
DX: K52.9 Noninfective gastroenteritis and colitis, unspecified (principal); I10 Essential (primary) hypertension; E11.9 Type 2 diabetes mellitus without complications
CPT/HCPCS: 36415; 80053; 81003; 82962; 83690; 85025; 96374; 96375; 99284; J2405

== ENCOUNTER 2020-07-25 12:29 | Outpatient (CLI) | payer MEDICAID ==
[~2020-07-25] VITALS: Ht 142.2 cm; Wt 75.3 kg
[~2020-07-25 12:29] MED LIST changes: +DICYCLOMINE HCL10 MG PO; +ZOFRAN4 MG ORAL
[2020-07-25 12:45] VITALS: BP 135/84
--- NOTE | 2020-07-25 13:44 | Consultation ---
DATE OF CONSULTATION: 07/25/2020 CHIEF COMPLAINT: Referral for screening colonoscopy. PAST MEDICAL HISTORY: Hypertension and diabetes. PAST SURGICAL HISTORY: Cholecystectomy. MEDICATIONS: Please see medication reconciliation list. ALLERGIES: No known allergies. FAMILY HISTORY: No family of GI malignancies. SOCIAL HISTORY: The patient denies any tobacco, alcohol, or drug abuse. REVIEW OF SYSTEMS: A 10-point review of systems was performed and was negative. PHYSICAL EXAMINATION: VITAL SIGNS: Temperature 97.5, blood pressure 134/84, pulse is 92, respiratory rate 20. Height is 4 feet 8 inches, weight is 166. HEENT: Normocephalic and atraumatic. Sclerae anicteric. NECK: Supple. No evidence of obvious lymphadenopathy. CARDIOVASCULAR: Regular rate and rhythm. Plus S1-S2. LUNGS: Clear to auscultation bilaterally. ABDOMEN: Positive bowel sounds. Soft and nontender. No rebound. No guarding. No peritoneal sign. EXTREMITIES: No cyanosis, no clubbing, no edema. ASSESSMENT AND PLAN: This is a 65-year-old female referred for screening colonoscopy. The patient was given instruction for colonoscopy. Risks and benefits of procedure were explained to her in detail. We will schedule her as soon as authorization is obtained. Eliseo Knight M.D. DR: Stacey JOB#: [id number] CC:
== END 2020-07-25 14:49 | disposition home or self-care (01) ==
LOC: PAN 12:29
DX: E11.9 Type 2 diabetes mellitus without complications (principal); I10 Essential (primary) hypertension; Z90.49 Acquired absence of other specified parts of digestive tract
CPT/HCPCS: G0463